=== PATIENT | female | born 1995 | race Caucasian/White ===

== ENCOUNTER 2016-08-20 19:20 | Emergency (ER) | payer OTHER ==
--- NOTE | 2016-08-20 22:27 | DIAGNOSTIC IMAGING REPORT ---
PROCEDURE: US COMPLETE PELVIC W/TRANSVAG INDICATION: Pain. History of endometriosis. TECHNIQUE: Transabdominal and endovaginal stokes scale and color Doppler sonographic images of the female pelvis were obtained. COMPARISON: None. FINDINGS: TRANSABDOMINAL SCANS: Uterus is of normal size (5.4 x 5.5 x 3.5 cm). There is a large 6.2 cm left adnexal isoechoic lesion. TRANSVAGINAL SCANS: Endometrial thickness is normal (5 mm). Left ovary is enlarged (6.2 x 6.2 x 4.6 cm) secondary to a mildly heterogeneous hypoechoic lesion with probable small amount of fluid. There is no evidence of vascularity in the left adnexal region. Right ovary is normal (2.4 cm) with normal vascularity. No evidence of free fluid. IMPRESSION: 1. There is enlargement left ovary (6.2 cm) consistent with a chronic endometrioma or hemorrhagic left ovarian cyst. Ovarian neoplasm or ovarian torsion are considered less likely. Early follow-up pelvic ultrasound (2-3 weeks) is recommended to confirm resolution. 2. Otherwise negative pelvic ultrasound. 3. Fine discussed with ÓSCAR Infante.
--- NOTE | 2016-08-20 22:37 | ED NURSING NOTES ---
Clinical Report - Nurses [facility] [address] [place] [address] 08/20/2016 19:23 Patient: LASHAWN TAVERA TRIAGE Triage time 1930. Acuity: LEVEL 3. Chief Complaint: ABDOMINAL PAIN and VAGINAL BLEEDING and URINARY URGENCY. --19:38 Nate Nino R.N. 19:28 08/20/16. BP: 135/84. HR: 82. RR: 16. O2 saturation: 100%. Temp: 98.6 F. Pain level now 05/08. --19:38 Nate Nino R.N. Weight: 51.2 kg stated. Height/Length: 66 inches Per Patient. BMI: 18.2. --19:34 Nate Nino R.N. Medications None. --20:47 Nate Nino R.N. Allergies Naproxen. --20:47 Nate Nino R.N. History Arrived by private vehicle. Historian: patient. Accompanied by friend. Onset. (1 weeks). ( LLQ pain x 1 week, started vag bleeding 2 days ago. pt on depo and not expecting menses.). She has had nausea. 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 SOCIAL HX: Heavy tobacco smoker- less than 1 pack per day. History of drug use: marijuana. No infectious disease exposure. FALL RISK ASSESSMENT: Fall risk assessment completed. No fall risk identified. NUTRITIONAL RISK ASSESSMENT: The nutritional risk assessment revealed no deficiencies. FUNCTIONAL ASSESSMENT: Functional assessment: no impairments noted. LEARNING NEEDS ASSESSMENT: The learning needs assessment revealed no barriers. SKIN INTEGRITY ASSESSMENT: Skin integrity risk assessment completed. No skin integrity risk identified. --19:38 Nate Nino R.N. PAST MEDICAL HX: ( recent dx bacterial vaginosis approx 1 week ago). --19:41 Nate Nino R.N. PROBLEMS: Endometriosis. Bacterial vaginosis. --20:48 Nate Nino R.N. ADDITIONAL SURGERIES: Laparoscopy. --20:48 Nate Nino R.N. Interventions ID band on patient. --19:38 Nate Nino R.N. PHYSICAL ASSESSMENT GENERAL / NEURO / PSYCH: Alert. Oriented X 4. Appears in no acute distress. HEENT: Mucous membranes are pink. RESPIRATORY: Respirations not labored. Breath sounds within normal limits. CVS: Normal sinus rhythm noted. Capillary refill less than 2 seconds. GI / : Abdomen soft. Bowel sounds within normal limits. Stool color normal. SKIN: Skin is warm and dry. --19:38 Nate Nino R.N. ( pt passing clots). --19:39 Nate Nino R.N. NURSING PROGRESS NOTES Patient gowned. Head of bed elevated. Reassurance given. Patient identifiers checked. Call light placed in reach. Bed placed in lowest position. Brakes of bed on. --19:38 Nate Nino R.N. 20:08/20/2016 Site #1 started via IV in the right antecubital space with an 20g angiocath, with aseptic technique and good blood return; one attempt. Blood drawn: rainbow set. Labeled in the presence of the patient and sent to the lab. Saline lock flushed with saline. --20:04 Nate Nino R.N. 20:04 08/20/2016 Started bag #1 1000 mL IV Fluids IV NS (Saline); bolus of 1000 mL wide open via site #1. Allergies verified and confirmed 5 rights. IV patency established. IV site checked: no pain, redness, or swelling. IV flushed thoroughly pre- and post-medication administration. --20:04 Nate Nino R.N. 20:12 08/20/2016 Zofran (Ondansetron HCl) IVP 4 mg given. via site #1. Allergies verified and confirmed 5 rights. IV patency established. IV site checked: no pain, redness, or swelling. IV flushed thoroughly pre- and post-medication administration. --20:12 Nate Nino R.N. 20:12 08/20/2016 Dilaudid (HYDROmorphone HCl PF) IVP 0.5 mg given. via site #1. Allergies verified and confirmed 5 rights. IV patency established. IV site checked: no pain, redness, or swelling. IV flushed thoroughly pre- and post-medication administration. --20:12 Nate Nino R.N. 21:54 08/20/2016 IV Fluids IV NS Discontinued: bag #1 infused. Total amount infused: 1000 mL. IV patency established. IV site checked: no pain, redness, or swelling. IV flushed thoroughly. --22:19 Nate Nino R.N. <<STRICKEN ENTRY-- 22:19 08/20/2016 Dilaudid (HYDROmorphone HCl PF) IVP 0.5 mg given. via site #1. Allergies verified and confirmed 5 rights. IV patency established. IV site checked: no pain, redness, or swelling. IV flushed thoroughly pre- and post-medication administration. --22:19 Nate Nino R.N. --END STRIKE>> Change to Details. second dose given on onetime dose order. charted second dose on second order as appropriate. --22:23 Nate Nino R.N. 22:20 08/20/2016 Dilaudid (HYDROmorphone HCl PF) IVP 0.5 mg given. via site #1. Allergies verified and confirmed 5 rights. IV patency established. IV site checked: no pain, redness, or swelling. IV flushed thoroughly pre- and post-medication administration. --22:20 Nate Nino R.N. 22:46 08/20/2016 Hydrocodone-APAP (Hydrocodone-Acetaminophen) PO 5/325 mg Tablets 1 tab given. Allergies verified, confirmed 5 rights and sedative warning given to the patient. (pt only wanted 1 tab, provider notified). --22:56 González Fried R.N. 22:53. The patient is calm and resting quietly. SKIN: Skin is warm and dry. Skin color within normal limits. --22:58 González Fried R.N. DISPOSITION / DISCHARGE Departure time: 22:56. Condition at departure: stable. No learning barriers present. Discharge instructions provided and reviewed with the patient. Reviewed medication(s) side effects, precautions, dosing and course information. Prescription(s) given to the patient. Patient verbalized understanding. Written instructions provided in Croatian. The patient was discharged home and accompanied by cardiac sonographer. She left the Emergency Department ambulatory and via private vehicle. Synthetic Staple Extruder driving. FALL RISK ASSESSMENT: Fall risk assessment completed. No fall risk identified. --22:58 González Fried R.N. 22:56 08/20/16. BP: 128/86. HR: 72. RR: 15. O2 saturation: 100% on room air. Pain level now: 08/08. --22:58 González Fried R.N. 22:52 08/20/2016 Site #1 removed upon discharge. Bandaid applied. --22:58 González Fried R.N. Locked/Released at 08/20/2016 22:59 by González Fried R.N.
--- NOTE | 2016-08-20 22:37 | ED ORDER SUMMARY ---
..... Patient: LASHAWN TAVERA OrderSheet [facility] VisitID: [id number] [address] [place] [address] 21y, F Registration Date/Time: 08/20/2016 ORDER SHEET Weight: 51.2 kg (stated) Allergies: Naproxen GENERAL ORDERS: UA-Culture if indicated Urgent (19:36 08/20/2016 JQuivey R.N. per protocol) (Ack 19:38 CHagerty ER Mail Processing Machine Operator) (19:50 JBullard R.N.) Urine Urgent (19:36 08/20/2016 JQuivey R.N. per protocol) (Ack 19:38 CHagerty ER Mail Processing Machine Operator) (19:50 JBullard R.N.) CBC w Diff Urgent (19:48 08/20/2016 EKoroleva P.A.-C) (Ack 19:51 CHagerty ER Mail Processing Machine Operator) (20:03 JBullard R.N.) CMP Urgent (19:48 08/20/2016 EKoroleva P.A.-C) (Ack 19:51 CHagerty ER Mail Processing Machine Operator) (20:03 JBullard R.N.) US Pelvic Complete w Transvag Urgent (20:01 08/20/2016 EKoroleva P.A.-C) (Ack 20:04 CHagerty ER Mail Processing Machine Operator) (22:06 Jennifer) Wet Prep (Cervix) (c) Urgent (20:59 08/20/2016 EKoroleva P.A.-C) (Ack 21:00 CHagerty ER Mail Processing Machine Operator) (21:00 CHagerty ER Mail Processing Machine Operator) GC/Chlamydia (Cervix) (c) Urgent (20:59 08/20/2016 EKoroleva P.A.-C) (Ack 21:00 CHagerty ER Mail Processing Machine Operator) (21:00 CHagerty ER Mail Processing Machine Operator) MEDICATION ORDERS: Hydrocodone-APAP PO 10/650 mg (NOW, HIGH ALERT MEDICATION) (22:37 08/20/2016 EKoroleva P.A.-C) (Ack 22:43 JQuivey R.N.) (22:56 JQuivey R.N.) IV FLUIDS: IV NS : initial bolus 1000 mL (1000 mL/hr), then 10 mL/hr for X1 (NOW); Flako (19:48 08/20/2016 EKoroleva P.A.-C) (20:04 Comfort R.N.) Dilaudid IV 0.5 mg (HIGH ALERT MEDICATION, NOW) (20:03 08/20/2016 EKoroleva P.A.-C) (20:12 Comfort R.N.) Zofran IV 4 mg (NOW) (20:03 08/20/2016 EKoroleva P.A.-C) (20:12 Comfort R.N.) Dilaudid IV 0.5 mg (HIGH ALERT MEDICATION, NOW) (22:19 08/20/2016 EKoroleva P.A.-C) (22:20 Comfort R.N.) ORDER SHEET NOTES: [Electronically signed by González Fried R.N. (22:59 08/20/2016)] [Electronically signed by Mattie Romero P.A.-C (23:37 08/20/2016)] [Electronically locked/signed by González Fried R.N. (22:59 08/20/2016)]
--- NOTE | 2016-08-20 22:37 | ED CLINICAL REPORT ---
Clinical Report - Physicians/Mid Levels [facility] [address] [place] [address] 08/20/2016 19:23 Patient: LASHAWN TAVERA Time Seen: 1937. Arrived- By private vehicle. Historian- patient. HISTORY OF PRESENT ILLNESS Chief Complaint: PELVIC PAIN and VAGINAL BLEEDING. This started 4 days and still present. The symptoms are described as moderate. The patient has had pelvic pain. No low back pain, flank pain, pain with urination, urinary frequency or urgency of urination. Last normal menstrual period- last days 2 days prior. Sexually active. (aginal bleeding left pelvic pain over the last 2 days, worsening. Patient reports no vaginal bleeding over the last 7 years, she has bee no condom use.). REVIEW OF SYSTEMS No vomiting, diarrhea or chest pain. All systems otherwise negative, except as recorded above. PAST HISTORY Problems: Endometriosis. Bacterial vaginosis. Additional Surgeries: Laparoscopy. Medications: None. Allergies: Naproxen. SOCIAL HISTORY Smoker- current status unknown. History of drug use: marijuana. ADDITIONAL NOTES The nursing notes have been reviewed. PHYSICAL EXAM Vital Signs: 08/20/2016 19:28 BP: 135/84. HR: 82. RR: 16. O2 saturation: 100%. Temp: 98.6 F. Appearance: Alert. HEENT: Normal external inspection. ENT: Pharynx normal. Neck: Neck supple. No lymphadenopathy. CVS: Heart sounds normal. Respiratory: No respiratory distress. Breath sounds normal. Abdomen: Soft. Moderate tenderness in the left lower quadrant. No rebound tenderness. : Speculum and bimanual exam performed. External inspection normal. Speculum exam normal. Vaginal bleeding. No vaginal discharge. Bimanual exam normal. Mild left adnexal tenderness. Not mild cervical motion tenderness. No adnexal tenderness. No adnexal mass/fullness. (chaperoned exam with Cielo NOVAK). Skin: Skin warm. Normal skin color. LABS, X-RAYS, AND EKG Pelvic Sonogram: IMPRESSION: 1. There is enlargement left ovary (6.2 cm) consistent with a chronic endometrioma or hemorrhagic left ovarian cyst. Ovarian neoplasm or ovarian torsion are considered less likely. Early follow-up pelvic ultrasound (2-3 weeks) is recommended to confirm resolution. 2. Otherwise negative pelvic ultrasound. 3. Fine discussed with ÓSCAR Infante. Electronically Final signed by:Dagoberto Anderson MD 08/20/2016 10:25:48 PM. Laboratory Tests: UA-Culture if indicated: ([place]: 08/20/2016 19:30) ( [facility] Final results Test Result Flag Units (Reference) URINE COLOR YELLOW URINE APPEARANCE CLEAR URINE GLUCOSE NEGATIVE (NEGATIVE) URINE BILIRUBIN NEGATIVE (NEGATIVE) URINE KETONE NEGATIVE (NEGATIVE) URINE SPECIFIC GRAVITY <= 1.005 L (1.010-1.030) URINE PH 6.5 (5.0-8.0) URINE PROTEIN NEGATIVE (NEGATIVE) URINE UROBILINOGEN 0.2 EU/dL (0.2-1.0) URINE NITRITE NEGATIVE (NEGATIVE) URINE BLOOD 3+ (NEGATIVE) URINE LEUK ESTERASE NEGATIVE (NEGATIVE) URINE RBC 3-5 rbc/hpf (0-1) URINE WBC NONE SEEN wbc/hpf (0-1) URINE EPITHELIAL CELLS 0-1 EPI/hpf (0-5) URINE BACTERIA NONE SEEN (NONE SEEN) URINE COMMENT CULT NOT INDICATED URINE CULTURES ARE SET-UP BASED ON THE FOLLOWING CRITERIA:POSITIVE NITRITEPOSITIVE LEUKOCYTE ESTERASEGREATER THAN 10 WHITE BLOOD CELLSMODERATE (2+) OR GREATER BACTERIA Urine: (STERLING: 08/20/2016 19:30) ( [facility] 19:48) Final results Test Result Flag Units (Reference) URINE NEGATIVE CBC w Diff: ([place]: 08/20/2016 20:00) ( [facility] 08/20/2016 20:21) Final results Test Result Flag Units (Reference) WHITE BLOOD COUNT 8.4 K/uL (4.5-11.5) RED BLOOD COUNT 4.51 M/uL (4.00-5.20) HEMOGLOBIN 13.7 gm/dL (12.0-16.0) HEMATOCRIT 42.0 % (36.0-46.0) MEAN CELL VOLUME 93 fL (80-100) MEAN CORPUSCULAR HGB 31 pg (26-34) MEAN CORPUSCULAR HGB CONC 33 g/dL (31-37) RED CELL DISTRIBUTION WIDTH 13.1 % (11.6-14.8) PLATELET COUNT 233 K/uL (150-400) NEUTROPHIL % 63.6 % (50-75) LYMPH % 27.2 % (25-40) MONO % 7.1 % (3-14) EOSINOPHIL % 1.7 % (0-4) BASOPHIL % 0.4 % (0-2) CMP: (STERLING: 08/20/2016 20:00) ( [facility] 08/20/2016 20:42) Final results Test Result Flag Units (Reference) GLUCOSE 94 mg/dL (70-110) BUN 13 mg/dL (7-18) CREATININE 0.7 mg/dL (0.6-1.3) Estimated GFR >60 mL/min Estimated GFR- >60 mL/min Note: Persistent reduction over 3 months in eGFR<60 mL/min/1.73 m2 defines CKD. Patients with eGFR values>=60 mL/min/1.73 m2 may also have CKD if evidence ofpersistent proteinuria. Additional information may be foundat www.kidney.org. SODIUM 143 mmol/L (136-145) POTASSIUM 3.8 mmol/L (3.5-5.1) CHLORIDE 107 mmol/L (98-107) CARBON DIOXIDE 27 mmol/L (21-32) CALCIUM 8.3 L mg/dL (8.5-10.1) TOTAL PROTEIN 7.2 g/dL (6.4-8.2) ALBUMIN 4.0 g/dL (3.3-5.0) BILIRUBIN, TOTAL 0.4 mg/dL (0.0-1.0) ALKALINE PHOSPHATASE 70 U/L (46-116) AST (SGOT) 27 U/L (15-37) ALT (SGPT) 45 U/L (12-78) . PROGRESS AND PROCEDURES Course of Care: Pt with moderate amount of pain, over last 4 days, pt with h/o endometriosis. Patient is very stable, no significant hemorrhage, stable h/h. Concern for us with endometrioma vs hemorrhagic cyst, lengthy discussion with patients so and patient. At this time ddx does include torsion, however gradual pain, pt does report that she had her left ovary near her uterus previously and prior difficulty visualizing such. Informed if acute pain to return to er, reports she will have close f/u with dr. chapman/ safia, and if any difficulty to call ER in next few days, to schedule f/u appointment if we are able to help. No signs of infectious etiology. 08/20/2016 22:57 BP: 128/86. HR: 72. RR: 15. O2 saturation: 100%. Pain level now: 08/08. Patient is stable. Physical exam findings are improved. Symptoms better. Patient/family counseled. Differential Diagnosis: I considered gastritis, urinary tract infection, cystitis, prostatitis, ureterolithiasis, urinary obstruction, ovarian cyst, ovarian torsion, , ectopic , pelvic inflammatory disease and pelvic abscess as a possible cause of abdominal pain in this patient. This is a partial list of diagnoses considered. Disposition: Discharged. CLINICAL IMPRESSION Single left ovarian cyst (Hemorrhagic cyst vs Endometrioma). INSTRUCTIONS Drink plenty of fluids. (as mentioned you have a large 6.2 cm endometrioma or hemorrhagic cyst on the left side, and this needs close follow up with street light mechanic. Call to schedule an appointment tomorrow with DR. Hood and or Hill If any difficulty call er back tomorrow after 1 pm, before 5 pm [phone] NO sexual activity). Warnings: Further evaluation is necessary. Prescription Medications: Hydrocodone/APAP 7.5mg / 325mg: take 1-2 orally every 6 hours as needed for pain. Dispense twenty-five (25). No refill. Follow-up with: Joe Hood MD, Obstetrics/Gynecology, , [facility], [address] [place] [address] Follow up. Call for the next available appointment. (Electronically signed by Mattie Romero P.A.-C 08/20/2016 23:37)
--- NOTE | 2016-08-20 22:37 | ED CLINICAL REPORT ---
Clinical Report - Physicians/Mid Levels [facility] [address] [place] [address] 08/20/2016 19:23 Patient: LASHAWN TAVERA Time Seen: 1937. Arrived- By private vehicle. Historian- patient. HISTORY OF PRESENT ILLNESS Chief Complaint: PELVIC PAIN and VAGINAL BLEEDING. This started 4 days and still present. The symptoms are described as moderate. The patient has had pelvic pain. No low back pain, flank pain, pain with urination, urinary frequency or urgency of urination. Last normal menstrual period- last days 2 days prior. Sexually active. (aginal bleeding left pelvic pain over the last 2 days, worsening. Patient reports no vaginal bleeding over the last 7 years, she has bee no condom use.). REVIEW OF SYSTEMS No vomiting, diarrhea or chest pain. All systems otherwise negative, except as recorded above. PAST HISTORY Problems: Endometriosis. Bacterial vaginosis. Additional Surgeries: Laparoscopy. Medications: None. Allergies: Naproxen. SOCIAL HISTORY Smoker- current status unknown. History of drug use: marijuana. ADDITIONAL NOTES The nursing notes have been reviewed. PHYSICAL EXAM Vital Signs: 08/20/2016 19:28 BP: 135/84. HR: 82. RR: 16. O2 saturation: 100%. Temp: 98.6 F. Appearance: Alert. HEENT: Normal external inspection. ENT: Pharynx normal. Neck: Neck supple. No lymphadenopathy. CVS: Heart sounds normal. Respiratory: No respiratory distress. Breath sounds normal. Abdomen: Soft. Moderate tenderness in the left lower quadrant. No rebound tenderness. : Speculum and bimanual exam performed. External inspection normal. Speculum exam normal. Vaginal bleeding. No vaginal discharge. Bimanual exam normal. Mild left adnexal tenderness. Not mild cervical motion tenderness. No adnexal tenderness. No adnexal mass/fullness. (chaperoned exam with Cielo NOVAK). Skin: Skin warm. Normal skin color. LABS, X-RAYS, AND EKG Pelvic Sonogram: IMPRESSION: 1. There is enlargement left ovary (6.2 cm) consistent with a chronic endometrioma or hemorrhagic left ovarian cyst. Ovarian neoplasm or ovarian torsion are considered less likely. Early follow-up pelvic ultrasound (2-3 weeks) is recommended to confirm resolution. 2. Otherwise negative pelvic ultrasound. 3. Fine discussed with ÓSCAR Infante. Electronically Final signed by:Dagoberto Anderson MD 08/20/2016 10:25:48 PM. Laboratory Tests: UA-Culture if indicated: ([place]ING: 08/20/2016 19:30) ( [facility] 08/20/2016 20:04) Final results Test Result Flag Units (Reference) URINE COLOR YELLOW URINE APPEARANCE CLEAR URINE GLUCOSE NEGATIVE (NEGATIVE) URINE BILIRUBIN NEGATIVE (NEGATIVE) URINE KETONE NEGATIVE (NEGATIVE) URINE SPECIFIC GRAVITY <= 1.005 L (1.010-1.030) URINE PH 6.5 (5.0-8.0) URINE PROTEIN NEGATIVE (NEGATIVE) URINE UROBILINOGEN 0.2 EU/dL (0.2-1.0) URINE NITRITE NEGATIVE (NEGATIVE) URINE BLOOD 3+ (NEGATIVE) URINE LEUK ESTERASE NEGATIVE (NEGATIVE) URINE RBC 3-5 rbc/hpf (0-1) URINE WBC NONE SEEN wbc/hpf (0-1) URINE EPITHELIAL CELLS 0-1 EPI/hpf (0-5) URINE BACTERIA NONE SEEN (NONE SEEN) URINE COMMENT CULT NOT INDICATED URINE CULTURES ARE SET-UP BASED ON THE FOLLOWING CRITERIA:POSITIVE NITRITEPOSITIVE LEUKOCYTE ESTERASEGREATER THAN 10 WHITE BLOOD CELLSMODERATE (2+) OR GREATER BACTERIA Urine: (STER[place]ING: 08/20/2016 19:30) ( [facility] 08/20/2016 19:48) Final results Test Result Flag Units (Reference) URINE NEGATIVE CBC w Diff: ([place]: 08/20/2016 20:00) ( [facility] 08/20/2016 20:21) Final results Test Result Flag Units (Reference) WHITE BLOOD COUNT 8.4 K/uL (4.5-11.5) RED BLOOD COUNT 4.51 M/uL (4.00-5.20) HEMOGLOBIN 13.7 gm/dL (12.0-16.0) HEMATOCRIT 42.0 % (36.0-46.0) MEAN CELL VOLUME 93 fL (80-100) MEAN CORPUSCULAR HGB 31 pg (26-34) MEAN CORPUSCULAR HGB CONC 33 g/dL (31-37) RED CELL DISTRIBUTION WIDTH 13.1 % (11.6-14.8) PLATELET COUNT 233 K/uL (150-400) NEUTROPHIL % 63.6 % (50-75) LYMPH % 27.2 % (25-40) MONO % 7.1 % (3-14) EOSINOPHIL % 1.7 % (0-4) BASOPHIL % 0.4 % (0-2) CMP: (STERLING: 08/20/2016 20:00) ( MsgRcvd 08/20/2016 20:42) Final results Test Result Flag Units (Reference) GLUCOSE 94 mg/dL (70-110) BUN 13 mg/dL (7-18) CREATININE 0.7 mg/dL (0.6-1.3) Estimated GFR >60 mL/min Estimated GFR- >60 mL/min Note: Persistent reduction over 3 months in eGFR<60 mL/min/1.73 m2 defines CKD. Patients with eGFR values>=60 mL/min/1.73 m2 may also have CKD if evidence ofpersistent proteinuria. Additional information may be foundat www.kidney.org. SODIUM 143 mmol/L (136-145) POTASSIUM 3.8 mmol/L (3.5-5.1) CHLORIDE 107 mmol/L (98-107) CARBON DIOXIDE 27 mmol/L (21-32) CALCIUM 8.3 L mg/dL (8.5-10.1) TOTAL PROTEIN 7.2 g/dL (6.4-8.2) ALBUMIN 4.0 g/dL (3.3-5.0) BILIRUBIN, TOTAL 0.4 mg/dL (0.0-1.0) ALKALINE PHOSPHATASE 70 U/L (46-116) AST (SGOT) 27 U/L (15-37) ALT (SGPT) 45 U/L (12-78) . PROGRESS AND PROCEDURES Course of Care: Pt with moderate amount of pain, over last 4 days, pt with h/o endometriosis. Patient is very stable, no significant hemorrhage, stable h/h. Concern for us with endometrioma vs hemorrhagic cyst, lengthy discussion with patients so and patient. At this time ddx does include torsion, however gradual pain, pt does report that she had her left ovary near her uterus previously and prior difficulty visualizing such. Informed if acute pain to return to er, reports she will have close f/u with dr. chapman/ safia, and if any difficulty to call ER in next few days, to schedule f/u appointment if we are able to help. No signs of infectious etiology. 08/20/2016 22:57 BP: 128/86. HR: 72. RR: 15. O2 saturation: 100%. Pain level now: 08/08. Patient is stable. Physical exam findings are improved. Symptoms better. Patient/family counseled. Differential Diagnosis: I considered gastritis, urinary tract infection, cystitis, prostatitis, ureterolithiasis, urinary obstruction, ovarian cyst, ovarian torsion, , ectopic , pelvic inflammatory disease and pelvic abscess as a possible cause of abdominal pain in this patient. This is a partial list of diagnoses considered. Disposition: Discharged. CLINICAL IMPRESSION Single left ovarian cyst (Hemorrhagic cyst vs Endometrioma). INSTRUCTIONS Drink plenty of fluids. (as mentioned you have a large 6.2 cm endometrioma or hemorrhagic cyst on the left side, and this needs close follow up with firer portable boiler. Call to schedule an appointment tomorrow with DR. Hood and or Hill If any difficulty call er back tomorrow after 1 pm, before 5 pm [phone] NO sexual activity). Warnings: Further evaluation is necessary. Prescription Medications: Hydrocodone/APAP 7.5mg / 325mg: take 1-2 orally every 6 hours as needed for pain. Dispense twenty-five (25). No refill. Follow-up with: Joe Hood MD, Obstetrics/Gynecology, , [facility], [address] [place] [address] Follow up. Call for the next available appointment. (Electronically signed by Mattie Romero P.A.-C 08/20/2016 23:37)
--- NOTE | 2016-08-20 22:37 | ED ORDER SUMMARY ---
..... Patient: LASHAWN TAVERA OrderSheet [facility] VisitID: [id number] [address] [place] [address] 21y, F Registration Date/Time: 08/20/2016 ORDER SHEET Weight: 51.2 kg (stated) Allergies: Naproxen GENERAL ORDERS: UA-Culture if indicated Urgent (19:36 08/20/2016 JQuivey R.N. per protocol) (Ack 19:38 CHagerty ER Forepart Reducer) (19:50 JBullard R.N.) Urine Urgent (19:36 08/20/2016 JQuivey R.N. per protocol) (Ack 19:38 CHagerty ER Forepart Reducer) (19:50 JBullard R.N.) CBC w Diff Urgent (19:48 08/20/2016 EKoroleva P.A.-C) (Ack 19:51 CHagerty ER Forepart Reducer) (20:03 JBullard R.N.) CMP Urgent (19:48 08/20/2016 EKoroleva P.A.-C) (Ack 19:51 CHagerty ER Forepart Reducer) (20:03 JBullard R.N.) US Pelvic Complete w Transvag Urgent (20:01 08/20/2016 EKoroleva P.A.-C) (Ack 20:04 CHagerty ER Forepart Reducer) (22:06 Jennifer) Wet Prep (Cervix) (c) Urgent (20:59 08/20/2016 EKoroleva P.A.-C) (Ack 21:00 CHagerty ER Forepart Reducer) (21:00 CHagerty ER Forepart Reducer) GC/Chlamydia (Cervix) (c) Urgent (20:59 08/20/2016 EKoroleva P.A.-C) (Ack 21:00 CHagerty ER Forepart Reducer) (21:00 CHagerty ER Forepart Reducer) MEDICATION ORDERS: Hydrocodone-APAP PO 10/650 mg (NOW, HIGH ALERT MEDICATION) (22:37 08/20/2016 EKoroleva P.A.-C) (Ack 22:43 JQuivey R.N.) (22:56 JQuivey R.N.) IV FLUIDS: IV NS : initial bolus 1000 mL (1000 mL/hr), then 10 mL/hr for X1 (NOW); Flako (19:48 08/20/2016 EKoroleva P.A.-C) (20:04 Comfort R.N.) Dilaudid IV 0.5 mg (HIGH ALERT MEDICATION, NOW) (20:03 08/20/2016 EKoroleva P.A.-C) (20:12 Comfort R.N.) Zofran IV 4 mg (NOW) (20:03 08/20/2016 EKoroleva P.A.-C) (20:12 Comfort R.N.) Dilaudid IV 0.5 mg (HIGH ALERT MEDICATION, NOW) (22:19 08/20/2016 EKoroleva P.A.-C) (22:20 Comfort R.N.) ORDER SHEET NOTES: [Electronically signed by González Fried R.N. (22:59 08/20/2016)] [Electronically signed by Mattie Romero P.A.-C (23:37 08/20/2016)] [Electronically locked/signed by González Fried R.N. (22:59 08/20/2016)]
--- NOTE | 2016-08-20 22:37 | ED NURSING NOTES ---
Clinical Report - Nurses [facility] [address] [place] [address] 08/20/2016 19:23 Patient: LASHAWN TAVERA TRIAGE Triage time 1930. Acuity: LEVEL 3. Chief Complaint: ABDOMINAL PAIN and VAGINAL BLEEDING and URINARY URGENCY. --19:38 Nate Nino R.N. 19:28 08/20/16. BP: 135/84. HR: 82. RR: 16. O2 saturation: 100%. Temp: 98.6 F. Pain level now 05/08. --19:38 Nate Nino R.N. Weight: 51.2 kg stated. Height/Length: 66 inches Per Patient. BMI: 18.2. --19:34 Nate Nino R.N. Medications None. --20:47 Nate iNno R.N. Allergies Naproxen. --20:47 Nate Nino R.N. History Arrived by private vehicle. Historian: patient. Accompanied by friend. Onset. (1 weeks). ( LLQ pain x 1 week, started vag bleeding 2 days ago. pt on depo and not expecting menses.). She has had nausea. 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 SOCIAL HX: Heavy tobacco smoker- less than 1 pack per day. History of drug use: marijuana. No infectious disease exposure. FALL RISK ASSESSMENT: Fall risk assessment completed. No fall risk identified. NUTRITIONAL RISK ASSESSMENT: The nutritional risk assessment revealed no deficiencies. FUNCTIONAL ASSESSMENT: Functional assessment: no impairments noted. LEARNING NEEDS ASSESSMENT: The learning needs assessment revealed no barriers. SKIN INTEGRITY ASSESSMENT: Skin integrity risk assessment completed. No skin integrity risk identified. --19:38 Nate Nino R.N. PAST MEDICAL HX: ( recent dx bacterial vaginosis approx 1 week ago). --19:41 Nate Nino R.N. PROBLEMS: Endometriosis. Bacterial vaginosis. --20:48 Nate Nino R.N. ADDITIONAL SURGERIES: Laparoscopy. --20:48 Nate Nino R.N. Interventions ID band on patient. --19:38 Nate Nino R.N. PHYSICAL ASSESSMENT GENERAL / NEURO / PSYCH: Alert. Oriented X 4. Appears in no acute distress. HEENT: Mucous membranes are pink. RESPIRATORY: Respirations not labored. Breath sounds within normal limits. CVS: Normal sinus rhythm noted. Capillary refill less than 2 seconds. GI / : Abdomen soft. Bowel sounds within normal limits. Stool color normal. SKIN: Skin is warm and dry. --19:38 Nate Nino R.N. ( pt passing clots). --19:39 Nate Nino R.N. NURSING PROGRESS NOTES Patient gowned. Head of bed elevated. Reassurance given. Patient identifiers checked. Call light placed in reach. Bed placed in lowest position. Brakes of bed on. --19:38 Ntae Nino R.N. 20:08/20/2016 Site #1 started via IV in the right antecubital space with an 20g angiocath, with aseptic technique and good blood return; one attempt. Blood drawn: rainbow set. Labeled in the presence of the patient and sent to the lab. Saline lock flushed with saline. --20:04 Nate Nino R.N. 20:04 08/20/2016 Started bag #1 1000 mL IV Fluids IV NS (Saline); bolus of 1000 mL wide open via site #1. Allergies verified and confirmed 5 rights. IV patency established. IV site checked: no pain, redness, or swelling. IV flushed thoroughly pre- and post-medication administration. --20:04 Nate Nino R.N. 20:12 08/20/2016 Zofran (Ondansetron HCl) IVP 4 mg given. via site #1. Allergies verified and confirmed 5 rights. IV patency established. IV site checked: no pain, redness, or swelling. IV flushed thoroughly pre- and post-medication administration. --20:12 Nate Nino R.N. 20:12 08/20/2016 Dilaudid (HYDROmorphone HCl PF) IVP 0.5 mg given. via site #1. Allergies verified and confirmed 5 rights. IV patency established. IV site checked: no pain, redness, or swelling. IV flushed thoroughly pre- and post-medication administration. --20:12 Nate Nino R.N. 21:54 08/20/2016 IV Fluids IV NS Discontinued: bag #1 infused. Total amount infused: 1000 mL. IV patency established. IV site checked: no pain, redness, or swelling. IV flushed thoroughly. --22:19 Nate Nino R.N. <<STRICKEN ENTRY-- 22:19 08/20/2016 Dilaudid (HYDROmorphone HCl PF) IVP 0.5 mg given. via site #1. Allergies verified and confirmed 5 rights. IV patency established. IV site checked: no pain, redness, or swelling. IV flushed thoroughly pre- and post-medication administration. --22:19 Nate Nino R.N. --END STRIKE>> Change to Details. second dose given on onetime dose order. charted second dose on second order as appropriate. --22:23 Nate Nino R.N. 22:20 08/20/2016 Dilaudid (HYDROmorphone HCl PF) IVP 0.5 mg given. via site #1. Allergies verified and confirmed 5 rights. IV patency established. IV site checked: no pain, redness, or swelling. IV flushed thoroughly pre- and post-medication administration. --22:20 Nate Nino R.N. 22:46 08/20/2016 Hydrocodone-APAP (Hydrocodone-Acetaminophen) PO 5/325 mg Tablets 1 tab given. Allergies verified, confirmed 5 rights and sedative warning given to the patient. (pt only wanted 1 tab, provider notified). --22:56 González Fried R.N. 22:53. The patient is calm and resting quietly. SKIN: Skin is warm and dry. Skin color within normal limits. --22:58 González Fried R.N. DISPOSITION / DISCHARGE Departure time: 22:56. Condition at departure: stable. No learning barriers present. Discharge instructions provided and reviewed with the patient. Reviewed medication(s) side effects, precautions, dosing and course information. Prescription(s) given to the patient. Patient verbalized understanding. Written instructions provided in Faroese. The patient was discharged home and accompanied by improvement nurse. She left the Emergency Department ambulatory and via private vehicle. Php Programmer driving. FALL RISK ASSESSMENT: Fall risk assessment completed. No fall risk identified. --22:58 González Fried R.N. 22:56 08/20/16. BP: 128/86. HR: 72. RR: 15. O2 saturation: 100% on room air. Pain level now: 08/08. --22:58 González Fried R.N. 22:52 08/20/2016 Site #1 removed upon discharge. Bandaid applied. --22:58 González Fried R.N. Locked/Released at 08/20/2016 22:59 by González Fried R.N.
--- NOTE | 2016-08-20 23:37 | ED DISCHARGE INSTRUCTIONS ---
Patient: LASHAWN TAVERA General Instructions [facility] VisitID: [id number] [address] [place] [id number] 21y, F Registration Date/Time: 08/20/2016 Single left ovarian cyst (Hemorrhagic cyst vs Endometrioma). INSTRUCTIONS Drink plenty of fluids. (as mentioned you have a large 6.2 cm endometrioma or hemorrhagic cyst on the left side, and this needs close follow up with supervisor parachute manufacturing. Call to schedule an appointment tomorrow with DR. Hood and or Hill If any difficulty call er back tomorrow after 1 pm, before 5 pm [phone] NO sexual activity). Warnings: Further evaluation is necessary. Prescription Medications: Hydrocodone/APAP 7.5mg / 325mg: take 1-2 orally every 6 hours as needed for pain. Dispense twenty-five (25). No refill. Follow-up with: Joe Hood MD, Obstetrics/Gynecology, , [facility], [address] [place] [address] Follow up. Call for the next available appointment. ADDITIONAL INFORMATION Ovarian Cyst The ovary is a small organ located on each side of the uterus. During each menstrual cycle a tiny egg sac forms in the ovary. If the egg is released but does not occur, this sac usually dissolves. Sometimes, the sac may fill with fluid. It then enlarges into a painful cyst. Usually the cyst will rupture or shrink on its own. In either case, the pain gradually goes away over the next 1-3 days. If the cyst does not shrink or rupture, it may cause continued pain. Home Care: Rest in bed and avoid heavy exertion until you are feeling better. Heat to the lower abdomen usually helps (heating pad or hot packs -- a small towel soaked in hot water). You may use acetaminophen (Tylenol) or ibuprofen (Motrin, Advil) to control pain, unless another pain medicine was prescribed. [NOTE: If you have chronic liver or kidney disease or ever had a stomach ulcer or GI bleeding, talk with your doctor before using these medicines.] Follow Up: See your doctor within the next 2-3 days if your pain doesnt improve. Otherwise, follow up with your doctor after your next period or as directed by our staff. Get Prompt Medical Attention if any of the following occur: Pain worsens or fails to respond to the above measures Fever of 100.4F (38C) or higher, or as directed by your healthcare provider Heavy vaginal bleeding (soaking one pad an hour for three hours) You feel weak or dizzy Fainting Passage of a pink or stokes tissue with menstrual bleeding Hydrocodone Bitartrate, Acetaminophen Oral tablet What is this medicine? ACETAMINOPHEN; HYDROCODONE (a set a AYANA shubham fen; tiffanie droe KOE done) is a pain reliever. It is used to treat mild to moderate pain. How should I use this medicine? Take this medicine by mouth. Swallow it with a full glass of water. Follow the directions on the prescription label. If the medicine upsets your stomach, take the medicine with food or milk. Do not take more than you are told to take. Talk to your powerhouse helper regarding the use of this medicine in children. This medicine is not approved for use in children. What side effects may I notice from receiving this medicine? Side effects that you should report to your doctor or health aged or disabled carer as soon as possible: allergic reactions like skin rash, itching or hives, swelling of the face, lips, or tongue breathing problems confusion feeling faint or lightheaded, falls stomach pain yellowing of the eyes or skin Side effects that usually do not require medical attention (report to your doctor or health aged or disabled carer if they continue or are bothersome): nausea, vomiting stomach upset What may interact with this medicine? alcohol antihistamines isoniazid medicines for depression, anxiety, or psychotic disturbances medicines for sleep muscle relaxants naltrexone narcotic medicines (opiates) for pain phenobarbital ritonavir tramadol What if I miss a dose? If you miss a dose, take it as soon as you can. If it is almost time for your next dose, take only that dose. Do not take double or extra doses. Where should I keep my medicine? Keep out of the reach of children. This medicine can be abused. Keep your medicine in a safe place to protect it from theft. Do not share this medicine with anyone. Selling or giving away this medicine is dangerous and against the law. Store at room temperature between 15 and 30 degrees C (59 and 86 degrees F). Protect from light. Keep container tightly closed. Throw away any unused medicine after the expiration date. Discard unused medicine and used packaging carefully. Pets and children can be harmed if they find used or lost packages. What should I tell my health care provider before I take this medicine? They need to know if you have any of these conditions: brain tumor Crohn's disease, inflammatory bowel disease, or ulcerative colitis drink more than 3 alcohol-containing drinks per day drug abuse or addiction head injury heart or circulation problems kidney disease or problems going to the bathroom liver disease lung disease, asthma, or breathing problems an unusual or allergic reaction to acetaminophen, hydrocodone, other opioid analgesics, other medicines, foods, dyes, or preservatives or trying to get breast-feeding What should I watch for while using this medicine? Tell your doctor or health aged or disabled carer if your pain does not go away, if it gets worse, or if you have new or a different type of pain. You may develop tolerance to the medicine. Tolerance means that you will need a higher dose of the medicine for pain relief. Tolerance is normal and is expected if you take the medicine for a long time. Do not suddenly stop taking your medicine because you may develop a severe reaction. Your body becomes used to the medicine. This does NOT mean you are addicted. Addiction is a behavior related to getting and using a drug for a non-medical reason. If you have pain, you have a medical reason to take pain medicine. Your doctor will tell you how much medicine to take. If your doctor wants you to stop the medicine, the dose will be slowly lowered over time to avoid any side effects. You may get drowsy or dizzy when you first start taking the medicine or change doses. Do not drive, use machinery, or do anything that may be dangerous until you know how the medicine affects you. Stand or sit up slowly. There are different types of narcotic medicines (opiates) for pain. If you take more than one type at the same time, you may have more side effects. Give your health care provider a list of all medicines you use. Your doctor will tell you how much medicine to take. Do not take more medicine than directed. Call emergency for help if you have problems breathing. The medicine will cause constipation. Try to have a bowel movement at least every 2 to 3 days. If you do not have a bowel movement for 3 days, call your doctor or health aged or disabled carer. Too much acetaminophen can be very dangerous. Do not take Tylenol (acetaminophen) or medicines that contain acetaminophen with this medicine. Many non-prescription medicines contain acetaminophen. Always read the labels carefully. You have been given the following additional information: Ovarian Cyst Hydrocodone Bitartrate, Acetaminophen Oral tablet (Electronically signed by Mattie Romero P.A.-C 08/20/2016 23:37)
--- NOTE | 2016-08-20 23:37 | ED DISCHARGE INSTRUCTIONS ---
Patient: LASHAWN TAVERA General Instructions [facility] VisitID: [id number] [place] [phone] 21y, F Registration Date/Time: 08/20/2016 Single left ovarian cyst (Hemorrhagic cyst vs Endometrioma). INSTRUCTIONS Drink plenty of fluids. (as mentioned you have a large 6.2 cm endometrioma or hemorrhagic cyst on the left side, and this needs close follow up with online marketing director. Call to schedule an appointment tomorrow with DR. Hood and or Hill If any difficulty call er back tomorrow after 1 pm, before 5 pm [phone] NO sexual activity). Warnings: Further evaluation is necessary. Prescription Medications: Hydrocodone/APAP 7.5mg / 325mg: take 1-2 orally every 6 hours as needed for pain. Dispense twenty-five (25). No refill. Follow-up with: Joe Hood MD, Obstetrics/Gynecology, , [facility], [address] [place] [address] Follow up. Call for the next available appointment. ADDITIONAL INFORMATION Ovarian Cyst The ovary is a small organ located on each side of the uterus. During each menstrual cycle a tiny egg sac forms in the ovary. If the egg is released but does not occur, this sac usually dissolves. Sometimes, the sac may fill with fluid. It then enlarges into a painful cyst. Usually the cyst will rupture or shrink on its own. In either case, the pain gradually goes away over the next 1-3 days. If the cyst does not shrink or rupture, it may cause continued pain. Home Care: Rest in bed and avoid heavy exertion until you are feeling better. Heat to the lower abdomen usually helps (heating pad or hot packs -- a small towel soaked in hot water). You may use acetaminophen (Tylenol) or ibuprofen (Motrin, Advil) to control pain, unless another pain medicine was prescribed. [NOTE: If you have chronic liver or kidney disease or ever had a stomach ulcer or GI bleeding, talk with your doctor before using these medicines.] Follow Up: See your doctor within the next 2-3 days if your pain doesnt improve. Otherwise, follow up with your doctor after your next period or as directed by our staff. Get Prompt Medical Attention if any of the following occur: Pain worsens or fails to respond to the above measures Fever of 100.4F (38C) or higher, or as directed by your healthcare provider Heavy vaginal bleeding (soaking one pad an hour for three hours) You feel weak or dizzy Fainting Passage of a pink or stokes tissue with menstrual bleeding Hydrocodone Bitartrate, Acetaminophen Oral tablet What is this medicine? ACETAMINOPHEN; HYDROCODONE (a set a AYANA shubham fen; tiffanie droe KOE done) is a pain reliever. It is used to treat mild to moderate pain. How should I use this medicine? Take this medicine by mouth. Swallow it with a full glass of water. Follow the directions on the prescription label. If the medicine upsets your stomach, take the medicine with food or milk. Do not take more than you are told to take. Talk to your stencil machine operator regarding the use of this medicine in children. This medicine is not approved for use in children. What side effects may I notice from receiving this medicine? Side effects that you should report to your doctor or health healthcare recruiter as soon as possible: allergic reactions like skin rash, itching or hives, swelling of the face, lips, or tongue breathing problems confusion feeling faint or lightheaded, falls stomach pain yellowing of the eyes or skin Side effects that usually do not require medical attention (report to your doctor or health healthcare recruiter if they continue or are bothersome): nausea, vomiting stomach upset What may interact with this medicine? alcohol antihistamines isoniazid medicines for depression, anxiety, or psychotic disturbances medicines for sleep muscle relaxants naltrexone narcotic medicines (opiates) for pain phenobarbital ritonavir tramadol What if I miss a dose? If you miss a dose, take it as soon as you can. If it is almost time for your next dose, take only that dose. Do not take double or extra doses. Where should I keep my medicine? Keep out of the reach of children. This medicine can be abused. Keep your medicine in a safe place to protect it from theft. Do not share this medicine with anyone. Selling or giving away this medicine is dangerous and against the law. Store at room temperature between 15 and 30 degrees C (59 and 86 degrees F). Protect from light. Keep container tightly closed. Throw away any unused medicine after the expiration date. Discard unused medicine and used packaging carefully. Pets and children can be harmed if they find used or lost packages. What should I tell my health care provider before I take this medicine? They need to know if you have any of these conditions: brain tumor Crohn's disease, inflammatory bowel disease, or ulcerative colitis drink more than 3 alcohol-containing drinks per day drug abuse or addiction head injury heart or circulation problems kidney disease or problems going to the bathroom liver disease lung disease, asthma, or breathing problems an unusual or allergic reaction to acetaminophen, hydrocodone, other opioid analgesics, other medicines, foods, dyes, or preservatives or trying to get breast-feeding What should I watch for while using this medicine? Tell your doctor or health healthcare recruiter if your pain does not go away, if it gets worse, or if you have new or a different type of pain. You may develop tolerance to the medicine. Tolerance means that you will need a higher dose of the medicine for pain relief. Tolerance is normal and is expected if you take the medicine for a long time. Do not suddenly stop taking your medicine because you may develop a severe reaction. Your body becomes used to the medicine. This does NOT mean you are addicted. Addiction is a behavior related to getting and using a drug for a non-medical reason. If you have pain, you have a medical reason to take pain medicine. Your doctor will tell you how much medicine to take. If your doctor wants you to stop the medicine, the dose will be slowly lowered over time to avoid any side effects. You may get drowsy or dizzy when you first start taking the medicine or change doses. Do not drive, use machinery, or do anything that may be dangerous until you know how the medicine affects you. Stand or sit up slowly. There are different types of narcotic medicines (opiates) for pain. If you take more than one type at the same time, you may have more side effects. Give your health care provider a list of all medicines you use. Your doctor will tell you how much medicine to take. Do not take more medicine than directed. Call emergency for help if you have problems breathing. The medicine will cause constipation. Try to have a bowel movement at least every 2 to 3 days. If you do not have a bowel movement for 3 days, call your doctor or health healthcare recruiter. Too much acetaminophen can be very dangerous. Do not take Tylenol (acetaminophen) or medicines that contain acetaminophen with this medicine. Many non-prescription medicines contain acetaminophen. Always read the labels carefully. You have been given the following additional information: Ovarian Cyst Hydrocodone Bitartrate, Acetaminophen Oral tablet (Electronically signed by Mattie Romero P.A.-C 08/20/2016 23:37)
--- NOTE | 2016-08-20 23:37 | ED MAR SUMMARY ---
..... Medication Administration Record [facility] [address] [place] [place] [address] Patient: LASHAWN TAVERA Visit ID: [id number] 21y, F Weight: 51.2 kg Height/Length: 66 in BMI: 18.2 ALLERGIES: Naproxen Start 20:04 08/20/2016 Nate Nino R.N., Stop 21:54 08/20/2016 Nate Nino R.N. Medication Administered: IV NS (SALINE), Dose: IV Fluids, Bolus: 1000 mL wide open, Dispensed: 1000 mL bag, Site: #1 right AC. Medication Ordered: IV NS : initial bolus 1000 mL (1000 mL/hr), then 10 mL/hr for X1 (NOW); Flako. Given 20:12 08/20/2016 Nate Nino R.N. Medication Administered: DILAUDID [IVP] (HYDROMORPHONE HCL PF), Dose: 0.5 mg IVP, Site: #1 right AC. Medication Ordered: Dilaudid IV 0.5 mg (HIGH ALERT MEDICATION, NOW). Given 20:12 08/20/2016 Nate Nino R.N. Medication Administered: ZOFRAN [IVP] (ONDANSETRON HCL), Dose: 4 mg IVP, Site: #1 right AC. Medication Ordered: Zofran IV 4 mg (NOW). Given 22:20 08/20/2016 Nate Nino R.N. Medication Administered: DILAUDID [IVP] (HYDROMORPHONE HCL PF), Dose: 0.5 mg IVP, Site: #1 right AC. Medication Ordered: Dilaudid IV 0.5 mg (HIGH ALERT MEDICATION, NOW). Given 22:46 08/20/2016 González Fried R.N. Medication Administered: HYDROCODONE-APAP [PO] (HYDROCODONE-ACETAMINOPHEN), Dose: 1 tab 5/325 mg Tablets PO. Medication Ordered: Hydrocodone-APAP PO 10/650 mg (NOW, HIGH ALERT MEDICATION).
--- NOTE | 2016-08-20 23:37 | ED MAR SUMMARY ---
..... Medication Administration Record [facility] [address] [place] [address] Patient: LASHAWN TAVERA Visit ID: [id number] 21y, F Weight: 51.2 kg Height/Length: 66 in BMI: 18.2 ALLERGIES: Naproxen Start 20:04 08/20/2016 Nate Nino R.N., Stop 21:54 08/20/2016 Nate Nino R.N. Medication Administered: IV NS (SALINE), Dose: IV Fluids, Bolus: 1000 mL wide open, Dispensed: 1000 mL bag, Site: #1 right AC. Medication Ordered: IV NS : initial bolus 1000 mL (1000 mL/hr), then 10 mL/hr for X1 (NOW); Flako. Given 20:12 08/20/2016 Nate Nino R.N. Medication Administered: DILAUDID [IVP] (HYDROMORPHONE HCL PF), Dose: 0.5 mg IVP, Site: #1 right AC. Medication Ordered: Dilaudid IV 0.5 mg (HIGH ALERT MEDICATION, NOW). Given 20:12 08/20/2016 Nate Nino R.N. Medication Administered: ZOFRAN [IVP] (ONDANSETRON HCL), Dose: 4 mg IVP, Site: #1 right AC. Medication Ordered: Zofran IV 4 mg (NOW). Given 22:20 08/20/2016 Nate Nino R.N. Medication Administered: DILAUDID [IVP] (HYDROMORPHONE HCL PF), Dose: 0.5 mg IVP, Site: #1 right AC. Medication Ordered: Dilaudid IV 0.5 mg (HIGH ALERT MEDICATION, NOW). Given 22:46 08/20/2016 González Fried R.N. Medication Administered: HYDROCODONE-APAP [PO] (HYDROCODONE-ACETAMINOPHEN), Dose: 1 tab 5/325 mg Tablets PO. Medication Ordered: Hydrocodone-APAP PO 10/650 mg (NOW, HIGH ALERT MEDICATION).
--- NOTE | 2016-08-20 23:37 | ED MED RECONCILIATION SUMMARY ---
Patient: LASHAWN TAVERA Medication Reconciliation Report [facility] VisitID: [id number] [address] [place] [address] 21y, F Registration Date/Time: 08/20/2016 Weight: 51.2 kg Height/Length: 66 in. BMI: 18.2 ALLERGIES: Naproxen The patient's Home Medications are listed below: NONE. The source(s) of the original Home Medication information: Not obtained. The following Medications were given to the patient in the Emergency Department: IV NS IV Fluids bolus 1000 mL wide open, administered: 08/20/2016 8:04:00 PM Zofran [IVP] IVP 4 mg, administered: 08/20/2016 8:12:00 PM Dilaudid [IVP] IVP 0.5 mg, administered: 08/20/2016 8:12:00 PM Dilaudid [IVP] IVP 0.5 mg, administered: 08/20/2016 10:20:00 PM Hydrocodone-APAP [PO] PO 1 tab, administered: 08/20/2016 10:46:00 PM The following Medications were prescribed to the patient: Hydrocodone/APAP 7.5mg / 325mg: take 1-2 orally every 6 hours as needed for pain. Dispense twenty-five (25). No refill. -- Mattie Romero P.A.-C
--- NOTE | 2016-08-20 23:37 | ED MED RECONCILIATION SUMMARY ---
Patient: LASHAWN TAVERA Medication Reconciliation Report [facility] VisitID: [id number] [address] [place] [address] 21y, F Registration Date/Time: 08/20/2016 Weight: 51.2 kg Height/Length: 66 in. BMI: 18.2 ALLERGIES: Naproxen The patient's Home Medications are listed below: NONE. The source(s) of the original Home Medication information: Not obtained. The following Medications were given to the patient in the Emergency Department: IV NS IV Fluids bolus 1000 mL wide open, administered: 08/20/2016 8:04:00 PM Zofran [IVP] IVP 4 mg, administered: 08/20/2016 8:12:00 PM Dilaudid [IVP] IVP 0.5 mg, administered: 08/20/2016 8:12:00 PM Dilaudid [IVP] IVP 0.5 mg, administered: 08/20/2016 10:20:00 PM Hydrocodone-APAP [PO] PO 1 tab, administered: 08/20/2016 10:46:00 PM The following Medications were prescribed to the patient: Hydrocodone/APAP 7.5mg / 325mg: take 1-2 orally every 6 hours as needed for pain. Dispense twenty-five (25). No refill. -- Mattie Romero P.A.-C
== END 2016-08-20 22:56 | disposition home or self-care (01) ==
LOC: ED SRH 19:20
DX: N83.202 Unspecified ovarian cyst, left side (principal); Z88.5 Allergy status to narcotic agent
CPT/HCPCS: 90004; 90100; 90195; 91227; 91228; 93070; 95059

== ENCOUNTER 2016-09-12 18:43 | Emergency (ER) | payer OTHER ==
--- NOTE | 2016-09-12 20:38 | DIAGNOSTIC IMAGING REPORT ---
PROCEDURE: CT ABD/PELVIS WITH CONTRAST CLINICAL INDICATION: Right lower quadrant pain x 2 days, initial encounter TECHNIQUE: 95 ml of Isovue 300 were injected intravenously and axial images were obtained of the entire abdomen and pelvis with sagittal and coronal reformations. COMPARISON: None. FINDINGS: ABDOMEN: Lung base are clear. Heart size is normal. Liver, gallbladder, pancreas, spleen, adrenal glands, kidneys and abdominal aorta are normal. Nonspecific bowel gas pattern. PELVIS: Normal appendix. 4 cm left ovarian cyst with trace free fluid. Small right ovarian cyst. Normal uterus and bladder. No inflammatory changes. Bones are unremarkable. IMPRESSION: 1. 4 cm left ovarian cysts with trace free fluid 2. Results discussed with Tasneem Trivedi All CT scans at this facility use dose modulation, iterative reconstruction, and/or weight-based dosing when appropriate to reduce radiation dose to as low as reasonably achievable.
--- NOTE | 2016-09-12 20:48 | ED NURSING NOTES ---
Clinical Report - Nurses [facility] [place] [address] [address] 09/12/2016 18:44 Patient: LASHAWN TAVERA TRIAGE Triage time 18:48. Acuity: LEVEL 3. Chief Complaint: ABDOMINAL PAIN. Alert. No acute distress. SEPSIS SCREEN: Sepsis Screen. Negative (no infection suspected/documented). --18:52 Theresa Weber R.N. 18:48 09/12/16. BP: 120/72. HR: 96. RR: 15. O2 saturation: 100%. Temp: 99.0 F. Pain level now 05/08. --18:52 Theresa Weber R.N. ( Pt. states she has had a ruptured ovarian cyst in the past and she feels she may be having this today.). --18:55 Theresa Weber R.N. Weight: 51.2 kg stated. Height/Length: 66 inches Per Patient. BMI: 18.2. --18:49 Theresa Weber R.N. Medications Depo-Medrol Injection. --18:51 Theresa Weber R.N. Allergies Naproxen. (faint) --18:51 Theresa Weber R.N. History Arrived by private vehicle. Historian: patient. Accompanied by (boyfriend). Primary physician (none). This started today. Treatment COST AND SALES RECORD SUPERVISOR: None. PAST MEDICAL HX: Immunizations: up-to-date. Last normal menstrual period- 3 weeks ago. SOCIAL HX: Heavy tobacco smoker (cigarette)- less than 1 pack per day. Occasional alcohol use. History of drug use: marijuana. (daily). No recent travel. No known contact with a sick individual. ABUSE ASSESSMENT: Abuse assessment: The patient was asked "Do you feel safe in your home?" and "Has anyone hurt you or threatened to hurt you?". No report of abuse. SELF HARM ASSESSMENT: A self harm assessment was performed. The patient answered "no" to the question "Do you have thoughts of harming or killing yourself?" and "Have you recently had thoughts about harming or killing others?". NUTRITIONAL RISK ASSESSMENT: The nutritional risk assessment revealed no deficiencies. FUNCTIONAL ASSESSMENT: Functional assessment: no impairments noted. LEARNING NEEDS ASSESSMENT: The learning needs assessment revealed no barriers. --18:52 Theresa Weber R.N. PROBLEMS: Ovarian Cyst. Endometriosis. Bacterial vaginosis. --18:51 Theresa Weber R.N. ADDITIONAL SURGERIES: Laparoscopy. --18:51 Theresa Weber R.N. Interventions ID band on patient. Ambulatory. --18:52 Theresa Weber R.N. PHYSICAL ASSESSMENT Ambulatory to room. GENERAL / NEURO / PSYCH: Alert. Oriented X 4. She appears uncomfortable. HEENT: Mucous membranes are pink. RESPIRATORY: Respirations not labored. CVS: Capillary refill less than 2 seconds. GI / : Abdomen soft and nontender. SKIN: Skin is warm and dry. --18:55 Theresa Weber R.N. NURSING PROGRESS NOTES Patient gowned. Head of bed elevated. Two patient identifiers checked. Call light placed in reach. Side rails up x 2. Bed placed in lowest position. Brakes of bed on. Patient ready for evaluation- chart flagged. --18:52 Theresa Weber R.N. 18:53 09/12/2016 Site #1 started via IV in the right antecubital space with an 20g angiocath, with aseptic technique and good blood return; one attempt. Blood drawn: rainbow set. Labeled in the presence of the patient and sent to the lab. Saline lock flushed with 10 mL saline (accessed by KISHORE Torres). --18:53 Theresa Weber R.N. Care transferred and report given (to KISHORE Ma). --18:59 Theresa Weber R.N. 19:42 09/12/16. Patient ID band checked for patient name and birthdate: patient confirmed. Instructions provided to collect clean catch urine and patient verbalized understanding. Clean catch urine collected with return of yellow-colored clear urine; sample sent to lab. Specimen labeled in the presence of the patient. --19:42 Nasrin Caicedo. DISPOSITION / DISCHARGE 20:49 02/14/17. BP: 92/55 taken on the left arm, via an automated monitor, while lying. HR: 64. RR: 16. O2 saturation: 100%. Temp: 98.8 F (oral). Pain level now: 03/08. --20:50 Anil Jett R.N. 21:10 09/12/16. BP: 112/74 (regular adult cuff) taken on the left arm, via an automated monitor, while sitting. HR: 81. RR: 15. O2 saturation: 100% on room air. Temp: 98.2 F (oral). Pain level now: 03/08. --21:19 Vanessa Gordillo R.N. Departure time: 2118 PM. Condition at departure: stable. The goals identified in the patient's plan of care were met. No learning barriers present. Discharge instructions provided and reviewed with the patient. Reviewed medication(s) side effects, precautions, dosing and course information. Prescription(s) given to the patient (tramadol). Reviewed referral to an business objects report developer for followup. Reviewed low fat diet, bland diet and need for increased fluid intake. Activity restrictions (rest) reviewed. Patient verbalized understanding. Written instructions provided in Setswana. The patient was discharged by the nurse practitioner. She was discharged home and accompanied by senior editor. She left the Emergency Department ambulatory and via private vehicle. Onsite Health Coach driving. FALL RISK ASSESSMENT: Fall risk assessment completed. No fall risk identified. --21:19 Vanessa Gordillo R.N. 21:09 09/12/2016 Site #1 removed upon discharge. Catheter intact. Manual pressure applied. --21:20 Vanessa Gordillo R.N. Locked/Released at 09/12/2016 21:20 by Vanessa Gordillo R.N.
--- NOTE | 2016-09-12 20:48 | ED ORDER SUMMARY ---
..... Patient: LASHAWN TAVERA OrderSheet [facility] VisitID: [id number] [address] [place] [address] 21y, F Registration Date/Time: 09/12/2016 ORDER SHEET Weight: 51.2 kg (stated) Allergies: Naproxen GENERAL ORDERS: CBC w Diff Urgent (19:00 09/12/2016 HBivens A.R.N.P.) (Ack 19:04 AMcQuoid ER Tech1) (19:04 AMcQuoid ER Tech1) CMP Urgent (19:00 09/12/2016 HBivens A.R.N.P.) (Ack 19:04 AMcQuoid ER Tech1) (19:04 AMcQuoid ER Tech1) UA-Culture if indicated Urgent (19:00 09/12/2016 HBivens A.R.N.P.) (Ack 19:04 AMcQuoid ER Tech1) (19:06 HOShaughnessy R.N.) Amylase Urgent (19:00 09/12/2016 HBivens A.R.N.P.) (Ack 19:04 AMcQuoid ER Tech1) (19:04 AMcQuoid ER Tech1) Lipase Urgent (19:00 09/12/2016 HBivens A.R.N.P.) (Ack 19:04 AMcQuoid ER Tech1) (19:04 AMcQuoid ER Tech1) Urine Urgent (19:00 09/12/2016 HBivens A.R.N.P.) (Ack 19:04 AMcQuoid ER Tech1) (19:06 HOShaughnessy R.N.) CT Abd/Pel w Cont (No) (normal) Urgent (19:37 09/12/2016 HBivens A.R.N.P.) (Ack 19:40 AMcQuoid ER Tech1) (20:31 MCampbell) MEDICATION ORDERS: IV FLUIDS: IV Saline Lock (19:00 09/12/2016 HBivens A.R.N.P.) (19:05 HOShaughnessy R.N.) ORDER SHEET NOTES: [Electronically signed by Vanessa Gordillo R.N. (21:20 09/12/2016)] [Electronically signed by Tasneem Trivedi (22:09/12/2016)] [Electronically locked/signed by Vanessa Gordillo R.N. (:09/12/2016)]
--- NOTE | 2016-09-12 20:48 | ED NURSING NOTES ---
Clinical Report - Nurses [facility] [place] [address] [place] [address] 09/12/2016 18:44 Patient: LASHAWN TAVERA TRIAGE Triage time 18:48. Acuity: LEVEL 3. Chief Complaint: ABDOMINAL PAIN. Alert. No acute distress. SEPSIS SCREEN: Sepsis Screen. Negative (no infection suspected/documented). --18:52 Theresa Weber R.N. 18:48 09/12/16. BP: 120/72. HR: 96. RR: 15. O2 saturation: 100%. Temp: 99.0 F. Pain level now 05/08. --18:52 Theresa Weber R.N. ( Pt. states she has had a ruptured ovarian cyst in the past and she feels she may be having this today.). --18:55 Theresa Weber R.N. Weight: 51.2 kg stated. Height/Length: 66 inches Per Patient. BMI: 18.2. --18:49 Theresa Weber R.N. Medications Depo-Medrol Injection. --18:51 Theresa Weber R.N. Allergies Naproxen. (faint) --18:51 Theresa Weber R.N. History Arrived by private vehicle. Historian: patient. Accompanied by (boyfriend). Primary physician (none). This started today. Treatment BUSINESS TRANSFORMATION ANALYST: None. PAST MEDICAL HX: Immunizations: up-to-date. Last normal menstrual period- 3 weeks ago. SOCIAL HX: Heavy tobacco smoker (cigarette)- less than 1 pack per day. Occasional alcohol use. History of drug use: marijuana. (daily). No recent travel. No known contact with a sick individual. ABUSE ASSESSMENT: Abuse assessment: The patient was asked "Do you feel safe in your home?" and "Has anyone hurt you or threatened to hurt you?". No report of abuse. SELF HARM ASSESSMENT: A self harm assessment was performed. The patient answered "no" to the question "Do you have thoughts of harming or killing yourself?" and "Have you recently had thoughts about harming or killing others?". NUTRITIONAL RISK ASSESSMENT: The nutritional risk assessment revealed no deficiencies. FUNCTIONAL ASSESSMENT: Functional assessment: no impairments noted. LEARNING NEEDS ASSESSMENT: The learning needs assessment revealed no barriers. --18:52 Theresa Weber R.N. PROBLEMS: Ovarian Cyst. Endometriosis. Bacterial vaginosis. --18:51 Theresa Weber R.N. ADDITIONAL SURGERIES: Laparoscopy. --18:51 Theresa Weber R.N. Interventions ID band on patient. Ambulatory. --18:52 Theresa Weber R.N. PHYSICAL ASSESSMENT Ambulatory to room. GENERAL / NEURO / PSYCH: Alert. Oriented X 4. She appears uncomfortable. HEENT: Mucous membranes are pink. RESPIRATORY: Respirations not labored. CVS: Capillary refill less than 2 seconds. GI / : Abdomen soft and nontender. SKIN: Skin is warm and dry. --18:55 Theresa Weber R.N. NURSING PROGRESS NOTES Patient gowned. Head of bed elevated. Two patient identifiers checked. Call light placed in reach. Side rails up x 2. Bed placed in lowest position. Brakes of bed on. Patient ready for evaluation- chart flagged. --18:52 Theresa Weber R.N. 18:53 09/12/2016 Site #1 started via IV in the right antecubital space with an 20g angiocath, with aseptic technique and good blood return; one attempt. Blood drawn: rainbow set. Labeled in the presence of the patient and sent to the lab. Saline lock flushed with 10 mL saline (accessed by KISHORE Torres). --18:53 Theresa Weber R.N. Care transferred and report given (to KISHORE Ma). --18:59 Theresa Weber R.N. 19:42 09/12/16. Patient ID band checked for patient name and birthdate: patient confirmed. Instructions provided to collect clean catch urine and patient verbalized understanding. Clean catch urine collected with return of yellow-colored clear urine; sample sent to lab. Specimen labeled in the presence of the patient. --19:42 Nasrin Caicedo. DISPOSITION / DISCHARGE 20:49 02/14/17. BP: 92/55 taken on the left arm, via an automated monitor, while lying. HR: 64. RR: 16. O2 saturation: 100%. Temp: 98.8 F (oral). Pain level now: 03/08. --20:50 Anil Jett R.N. 21:10 09/12/16. BP: 112/74 (regular adult cuff) taken on the left arm, via an automated monitor, while sitting. HR: 81. RR: 15. O2 saturation: 100% on room air. Temp: 98.2 F (oral). Pain level now: 03/08. --21:19 Vanessa Gordillo R.N. Departure time: 2118 PM. Condition at departure: stable. The goals identified in the patient's plan of care were met. No learning barriers present. Discharge instructions provided and reviewed with the patient. Reviewed medication(s) side effects, precautions, dosing and course information. Prescription(s) given to the patient (tramadol). Reviewed referral to an fisher crab for followup. Reviewed low fat diet, bland diet and need for increased fluid intake. Activity restrictions (rest) reviewed. Patient verbalized understanding. Written instructions provided in Khmer. The patient was discharged by the nurse practitioner. She was discharged home and accompanied by head of measurement & insights. She left the Emergency Department ambulatory and via private vehicle. [employer] driving. FALL RISK ASSESSMENT: Fall risk assessment completed. No fall risk identified. --21:19 Vanessa Gordillo R.N. 21:09 09/12/2016 Site #1 removed upon discharge. Catheter intact. Manual pressure applied. --21:20 Vanessa Gordillo R.N. Locked/Released at 09/12/2016 21:20 by Vanessa Gordillo R.N.
--- NOTE | 2016-09-12 20:48 | ED CLINICAL REPORT ---
Clinical Report - Physicians/Mid Levels [facility] [address] [place] [address] 09/12/2016 18:44 Patient: LASHAWN TAVERA Time Seen: 18:49; upon arrival, initial patient contact, initial documentation, patient care assumed. Arrived- By private vehicle. Historian- patient. RETURN VISIT: recently seen in this ED by another ED physician. Seen now for a new unrelated complaint. HISTORY OF PRESENT ILLNESS Chief Complaint: ABDOMINAL PAIN. It is described as "pain" and it is described as located in the right lower quadrant. Is still present. It was gradual in onset and has been constant. No nausea, loss of appetite, vomiting or diarrhea. No recent travel. Similar symptoms previously: ( pain last time was on L not R). Recent medical care: The patient was seen recently at this facility in the emergency department. ( txed here 08/20, dx with ovarian cyst, rx hydrocodone, no f/u). REVIEW OF SYSTEMS Last normal menstrual period- about 3 weeks ago. No constipation, black stools, hematemesis, difficulty with urination or pain with urination. No urinary frequency, bloody stools, fever, chest pain or difficulty breathing. No vaginal discharge. All systems otherwise negative, except as recorded above. PAST HISTORY See nurses notes. PROBLEMS: Ovarian Cyst. Endometriosis. Bacterial vaginosis. --18:51 Theresa Weber RAliya. ADDITIONAL SURGERIES: Laparoscopy. --18:51 Theresa Weber RAliya. SOCIAL HISTORY Heavy tobacco smoker. Regular alcohol use. History of heavy drug use: marijuana. Recently used drugs today. No recent travel. Is a local resident. FAMILY HISTORY Negative. ADDITIONAL NOTES The nursing notes have been reviewed with agreement regarding the chief complaint, HPI, ROS, PMH and patient medications and allergies. PHYSICAL EXAM Vital Signs: 09/12/2016 18:48 BP: 120/72. HR: 96. RR: 15. O2 saturation: 100%. Temp: 99.0 F. Have been reviewed as normal and appear to be correct. Appearance: Alert. Oriented X3. No acute distress. Eyes: Pupils equal, round and reactive to light. Eyes normal inspection. Neck: Normal inspection. Neck supple. CVS: Normal heart rate and rhythm. Heart sounds normal. Pulses normal. Respiratory: No respiratory distress. Breath sounds normal. Chest nontender. Abdomen: Soft and nontender. Bowel sounds normal. No organomegaly. No mass. Back: Normal inspection. Skin: Skin warm and dry. Normal skin color. No rash. Normal skin turgor. Extremities: Extremities exhibit normal ROM. No lower extremity edema. Neuro: Oriented X 3. No motor deficit. No sensory deficit. LABS, X-RAYS, AND EKG Abdominal CT: . IMPRESSION: 1. 4 cm left ovarian cysts with trace free fluid 2. Results discussed with Tasneem Trivedi All CT scans at this facility use dose modulation, iterative reconstruction, and/or weight-based dosing when appropriate to reduce radiation dose to as low as reasonably achievable. Electronically Final signed by:Donny Frederick MD 09/12/2016 8:38:38 PM. The study was interpreted by the radiologist and contemporaneously by me. Interpretation time: 2036. Laboratory Tests: UA-Culture if indicated: ([place]: 09/12/2016 19:39) ( [facility] 09/12/2016 20:08) IP Test Result Flag Units (Reference) URINE COLOR YELLOW URINE APPEARANCE CLEAR URINE GLUCOSE NEGATIVE (NEGATIVE) URINE BILIRUBIN NEGATIVE (NEGATIVE) URINE KETONE NEGATIVE (NEGATIVE) URINE SPECIFIC GRAVITY 1.010 (1.010-1.030) URINE PH 6.0 (5.0-8.0) URINE PROTEIN NEGATIVE (NEGATIVE) URINE UROBILINOGEN 0.2 EU/dL (0.2-1.0) URINE NITRITE NEGATIVE (NEGATIVE) URINE BLOOD NEGATIVE (NEGATIVE) URINE LEUK ESTERASE NEGATIVE (NEGATIVE) Urine: ([place]: 09/12/2016 19:39) ( [facility] 09/12/2016 20:10) Final results Test Result Flag Units (Reference) URINE NEGATIVE CBC w Diff: ([place]: 09/12/2016 18:50) ( [facility] 09/12/2016 19:11) Final results Test Result Flag Units (Reference) WHITE BLOOD COUNT 11.1 K/uL (4.5-11.5) RED BLOOD COUNT 4.30 M/uL (4.00-5.20) HEMOGLOBIN 13.2 gm/dL (12.0-16.0) HEMATOCRIT 38.8 % (36.0-46.0) MEAN CELL VOLUME 90 fL (80-100) MEAN CORPUSCULAR HGB 31 pg (26-34) MEAN CORPUSCULAR HGB CONC 34 g/dL (31-37) RED CELL DISTRIBUTION WIDTH 12.7 % (11.6-14.8) PLATELET COUNT 271 K/uL (150-400) NEUTROPHIL % 74.1 % (50-75) LYMPH % 16.2 L % (25-40) MONO % 8.6 % (3-14) EOSINOPHIL % 0.7 % (0-4) BASOPHIL % 0.4 % (0-2) CMP: ([place]: 09/12/2016 18:50) ( [facility] 09/12/2016 19:18) Final results Test Result Flag Units (Reference) GLUCOSE 102 mg/dL (70-110) BUN 11 mg/dL (7-18) CREATININE 0.7 mg/dL (0.6-1.3) Estimated GFR >60 mL/min Estimated GFR- >60 mL/min Note: Persistent reduction over 3 months in eGFR<60 mL/min/1.73 m2 defines CKD. Patients with eGFR values>=60 mL/min/1.73 m2 may also have CKD if evidence ofpersistent proteinuria. Additional information may be foundat www.kidney.org. SODIUM 138 mmol/L (136-145) POTASSIUM 3.7 mmol/L (3.5-5.1) CHLORIDE 102 mmol/L (98-107) CARBON DIOXIDE 22 mmol/L (21-32) CALCIUM 9.0 mg/dL (8.5-10.1) TOTAL PROTEIN 8.2 g/dL (6.4-8.2) ALBUMIN 4.0 g/dL (3.3-5.0) BILIRUBIN, TOTAL 0.4 mg/dL (0.0-1.0) ALKALINE PHOSPHATASE 70 U/L (46-116) AST (SGOT) 16 U/L (15-37) ALT (SGPT) 26 U/L (12-78) LIPASE 124 U/L (73-393) AMYLASE 72 U/L (25-115) . PROGRESS AND PROCEDURES Course of Care: informed of ct order. Patient counseled in person regarding the patient's stable condition, test results and diagnosis. 20:40. Differential Diagnosis: I considered acute appendicitis, colon cancer, urinary tract infection, ureterolithiasis, ovarian cyst, ovarian torsion, , ectopic , pelvic inflammatory disease, pelvic abscess, endometriosis and viral syndrome as a possible cause of abdominal pain in this patient. This is a partial list of diagnoses considered. Above considerations are based on history and physical exam. Differential diagnosis was discussed with patient. Disposition: Discharged home in good and improved condition (20:48). Condition: good and stable. CLINICAL IMPRESSION Acute right lower quadrant abdominal pain of undetermined cause. Single simple left ovarian cyst. No ruptured ovarian cyst, torsion of ovary or polycystic ovarian disease. INSTRUCTIONS Warnings: GENERAL WARNINGS: Return or contact your physician immediately if your condition worsens or changes unexpectedly, if not improving as expected, or if other problems arise. SPECIFICALLY, return if you develop pain in the abdomen or pelvis, fever, vomiting, the inability to keep fluids down, blood in vomitus, blood in diarrhea, fainting, lightheadedness or vaginal bleeding. Prescription Medications: Ultram 50 mg tablets: take 1-2 orally every 6 hours as needed for pain. Dispense twenty (20). No refills. Substitution is permissible. Understanding of the discharge instructions verbalized by patient. Follow-up with: Karla Alejandre DO, clinical implementation specialist, , [facility], [address] [place] [address] Follow up in about two days even if well. Call for an appointment. Summary of care provided to patient. (Electronically signed by Tasneem Trivedi A.R.N.P. 09/12/2016 22:02)
--- NOTE | 2016-09-12 20:48 | ED ORDER SUMMARY ---
..... Patient: LASHAWN TAVERA OrderSheet [facility] VisitID: [id number] [address] [place] [address] 21y, F Registration Date/Time: 09/12/2016 ORDER SHEET Weight: 51.2 kg (stated) Allergies: Naproxen GENERAL ORDERS: CBC w Diff Urgent (19:00 09/12/2016 HBivens A.R.N.P.) (Ack 19:04 AMcQuoid ER Tech1) (19:04 AMcQuoid ER Tech1) CMP Urgent (19:00 09/12/2016 HBivens A.R.N.P.) (Ack 19:04 AMcQuoid ER Tech1) (19:04 AMcQuoid ER Tech1) UA-Culture if indicated Urgent (19:00 09/12/2016 HBivens A.R.N.P.) (Ack 19:04 AMcQuoid ER Tech1) (19:06 HOShaughnessy R.N.) Amylase Urgent (19:00 09/12/2016 HBivens A.R.N.P.) (Ack 19:04 AMcQuoid ER Tech1) (19:04 AMcQuoid ER Tech1) Lipase Urgent (19:00 09/12/2016 HBivens A.R.N.P.) (Ack 19:04 AMcQuoid ER Tech1) (19:04 AMcQuoid ER Tech1) Urine Urgent (19:00 09/12/2016 HBivens A.R.N.P.) (Ack 19:04 AMcQuoid ER Tech1) (19:06 HOShaughnessy R.N.) CT Abd/Pel w Cont (No) (normal) Urgent (19:37 09/12/2016 HBivens A.R.N.P.) (Ack 19:40 AMcQuoid ER Tech1) (20:31 MCampbell) MEDICATION ORDERS: IV FLUIDS: IV Saline Lock (19:00 09/12/2016 HBivens A.R.N.P.) (19:05 HOShaughnessy R.N.) ORDER SHEET NOTES: [Electronically signed by Vanessa Gordillo R.N. (21:20 09/12/2016)] [Electronically signed by Tasneem Trivedi (22:09/12/2016)] [Electronically locked/signed by Vanessa Gordillo R.N. (:09/12/2016)]
--- NOTE | 2016-09-12 20:48 | ED CLINICAL REPORT ---
Clinical Report - Physicians/Mid Levels [facility] [address] [place] [address] 09/12/2016 18:44 Patient: LASHAWN ATVERA Time Seen: 18:49; upon arrival, initial patient contact, initial documentation, patient care assumed. Arrived- By private vehicle. Historian- patient. RETURN VISIT: recently seen in this ED by another ED physician. Seen now for a new unrelated complaint. HISTORY OF PRESENT ILLNESS Chief Complaint: ABDOMINAL PAIN. It is described as "pain" and it is described as located in the right lower quadrant. Is still present. It was gradual in onset and has been constant. No nausea, loss of appetite, vomiting or diarrhea. No recent travel. Similar symptoms previously: ( pain last time was on L not R). Recent medical care: The patient was seen recently at this facility in the emergency department. ( txed here 08/20, dx with ovarian cyst, rx hydrocodone, no f/u). REVIEW OF SYSTEMS Last normal menstrual period- about 3 weeks ago. No constipation, black stools, hematemesis, difficulty with urination or pain with urination. No urinary frequency, bloody stools, fever, chest pain or difficulty breathing. No vaginal discharge. All systems otherwise negative, except as recorded above. PAST HISTORY See nurses notes. PROBLEMS: Ovarian Cyst. Endometriosis. Bacterial vaginosis. --18:51 Theresa Weber RAliya. ADDITIONAL SURGERIES: Laparoscopy. --18:51 Theresa Weber RAliya. SOCIAL HISTORY Heavy tobacco smoker. Regular alcohol use. History of heavy drug use: marijuana. Recently used drugs today. No recent travel. Is a local resident. FAMILY HISTORY Negative. ADDITIONAL NOTES The nursing notes have been reviewed with agreement regarding the chief complaint, HPI, ROS, PMH and patient medications and allergies. PHYSICAL EXAM Vital Signs: 09/12/2016 18:48 BP: 120/72. HR: 96. RR: 15. O2 saturation: 100%. Temp: 99.0 F. Have been reviewed as normal and appear to be correct. Appearance: Alert. Oriented X3. No acute distress. Eyes: Pupils equal, round and reactive to light. Eyes normal inspection. Neck: Normal inspection. Neck supple. CVS: Normal heart rate and rhythm. Heart sounds normal. Pulses normal. Respiratory: No respiratory distress. Breath sounds normal. Chest nontender. Abdomen: Soft and nontender. Bowel sounds normal. No organomegaly. No mass. Back: Normal inspection. Skin: Skin warm and dry. Normal skin color. No rash. Normal skin turgor. Extremities: Extremities exhibit normal ROM. No lower extremity edema. Neuro: Oriented X 3. No motor deficit. No sensory deficit. LABS, X-RAYS, AND EKG Abdominal CT: . IMPRESSION: 1. 4 cm left ovarian cysts with trace free fluid 2. Results discussed with Tasneem Trivedi All CT scans at this facility use dose modulation, iterative reconstruction, and/or weight-based dosing when appropriate to reduce radiation dose to as low as reasonably achievable. Electronically Final signed by:Donny Frederick MD 09/12/2016 8:38:38 PM. The study was interpreted by the radiologist and contemporaneously by me. Interpretation time: 2036. Laboratory Tests: UA-Culture if indicated: ([place]: 09/12/2016 19:39) ( [facility]12[facility] 20:08) IP Test Result Flag Units (Reference) URINE COLOR YELLOW URINE APPEARANCE CLEAR URINE GLUCOSE NEGATIVE (NEGATIVE) URINE BILIRUBIN NEGATIVE (NEGATIVE) URINE KETONE NEGATIVE (NEGATIVE) URINE SPECIFIC GRAVITY 1.010 (1.010-1.030) URINE PH 6.0 (5.0-8.0) URINE PROTEIN NEGATIVE (NEGATIVE) URINE UROBILINOGEN 0.2 EU/dL (0.2-1.0) URINE NITRITE NEGATIVE (NEGATIVE) URINE BLOOD NEGATIVE (NEGATIVE) URINE LEUK ESTERASE NEGATIVE (NEGATIVE) Urine: ([place]: 09/12/2016 19:39) ( [facility] 09/12/2016 20:10) Final results Test Result Flag Units (Reference) URINE NEGATIVE CBC w Diff: ([place]: 09/12/2016 18:50) ( [facility] 09/12/2016 19:11) Final results Test Result Flag Units (Reference) WHITE BLOOD COUNT 11.1 K/uL (4.5-11.5) RED BLOOD COUNT 4.30 M/uL (4.00-5.20) HEMOGLOBIN 13.2 gm/dL (12.0-16.0) HEMATOCRIT 38.8 % (36.0-46.0) MEAN CELL VOLUME 90 fL (80-100) MEAN CORPUSCULAR HGB 31 pg (26-34) MEAN CORPUSCULAR HGB CONC 34 g/dL (31-37) RED CELL DISTRIBUTION WIDTH 12.7 % (11.6-14.8) PLATELET COUNT 271 K/uL (150-400) NEUTROPHIL % 74.1 % (50-75) LYMPH % 16.2 L % (25-40) MONO % 8.6 % (3-14) EOSINOPHIL % 0.7 % (0-4) BASOPHIL % 0.4 % (0-2) CMP: ([place]: 09/12/2016 18:50) ( [facility] 09/12/2016 19:18) Final results Test Result Flag Units (Reference) GLUCOSE 102 mg/dL (70-110) BUN 11 mg/dL (7-18) CREATININE 0.7 mg/dL (0.6-1.3) Estimated GFR >60 mL/min Estimated GFR- >60 mL/min Note: Persistent reduction over 3 months in eGFR<60 mL/min/1.73 m2 defines CKD. Patients with eGFR values>=60 mL/min/1.73 m2 may also have CKD if evidence ofpersistent proteinuria. Additional information may be foundat www.[email or web address].org. SODIUM 138 mmol/L (136-145) POTASSIUM 3.7 mmol/L (3.5-5.1) CHLORIDE 102 mmol/L (98-107) CARBON DIOXIDE 22 mmol/L (21-32) CALCIUM 9.0 mg/dL (8.5-10.1) TOTAL PROTEIN 8.2 g/dL (6.4-8.2) ALBUMIN 4.0 g/dL (3.3-5.0) BILIRUBIN, TOTAL 0.4 mg/dL (0.0-1.0) ALKALINE PHOSPHATASE 70 U/L (46-116) AST (SGOT) 16 U/L (15-37) ALT (SGPT) 26 U/L (12-78) LIPASE 124 U/L (73-393) AMYLASE 72 U/L (25-115) . PROGRESS AND PROCEDURES Course of Care: informed of ct order. Patient counseled in person regarding the patient's stable condition, test results and diagnosis. 20:40. Differential Diagnosis: I considered acute appendicitis, colon cancer, urinary tract infection, ureterolithiasis, ovarian cyst, ovarian torsion, , ectopic , pelvic inflammatory disease, pelvic abscess, endometriosis and viral syndrome as a possible cause of abdominal pain in this patient. This is a partial list of diagnoses considered. Above considerations are based on history and physical exam. Differential diagnosis was discussed with patient. Disposition: Discharged home in good and improved condition (20:48). Condition: good and stable. CLINICAL IMPRESSION Acute right lower quadrant abdominal pain of undetermined cause. Single simple left ovarian cyst. No ruptured ovarian cyst, torsion of ovary or polycystic ovarian disease. INSTRUCTIONS Warnings: GENERAL WARNINGS: Return or contact your physician immediately if your condition worsens or changes unexpectedly, if not improving as expected, or if other problems arise. SPECIFICALLY, return if you develop pain in the abdomen or pelvis, fever, vomiting, the inability to keep fluids down, blood in vomitus, blood in diarrhea, fainting, lightheadedness or vaginal bleeding. Prescription Medications: Ultram 50 mg tablets: take 1-2 orally every 6 hours as needed for pain. Dispense twenty (20). No refills. Substitution is permissible. Understanding of the discharge instructions verbalized by patient. Follow-up with: Karla Alejandre DO, catastrophe claims supervisor, , [facility], [address] [place] [address] Follow up in about two days even if well. Call for an appointment. Summary of care provided to patient. (Electronically signed by Tasneem Trivedi A.R.N.P. 09/12/2016 22:02)
--- NOTE | 2016-09-12 22:03 | ED MAR SUMMARY ---
..... Medication Administration Record Merged With [facility] [address] [place], [place] [id number] Patient: LASHAWN TAVERA Michelle Visit ID: [id number] 21y, F Weight: 51.2 kg Height/Length: 66 in BMI: 18.2 ALLERGIES: Naproxen
--- NOTE | 2016-09-12 22:03 | ED MAR SUMMARY ---
..... Medication Administration Record [facility] [address] [place], [place] [id number] Patient: LASHAWN TAVERA Michelle Visit ID: [id number] 21y, F Weight: 51.2 kg Height/Length: 66 in BMI: 18.2 ALLERGIES: Naproxen
--- NOTE | 2016-09-12 22:03 | ED DISCHARGE INSTRUCTIONS ---
Patient: LASHAWN TAVERA General Instructions [facility] VisitID: [id number] [address] [place] [id number] 21y, F Registration Date/Time: 09/12/2016 Acute right lower quadrant abdominal pain of undetermined cause. Single simple left ovarian cyst. No ruptured ovarian cyst, torsion of ovary or polycystic ovarian disease. INSTRUCTIONS Warnings: GENERAL WARNINGS: Return or contact your physician immediately if your condition worsens or changes unexpectedly, if not improving as expected, or if other problems arise. SPECIFICALLY, return if you develop pain in the abdomen or pelvis, fever, vomiting, the inability to keep fluids down, blood in vomitus, blood in diarrhea, fainting, lightheadedness or vaginal bleeding. Prescription Medications: Ultram 50 mg tablets: take 1-2 orally every 6 hours as needed for pain. Dispense twenty (20). No refills. Substitution is permissible. Understanding of the discharge instructions verbalized by patient. Follow-up with: Karla Alejandre DO, brooch and bracelet maker, , [facility], [address] [place] [address] Follow up in about two days even if well. Call for an appointment. Summary of care provided to patient. ADDITIONAL INFORMATION Abdominal Pain, Unknown Cause (Female) The exact cause of your abdominal (stomach) pain is not certain. This does not mean that this is something to worry about, or the right tests were not done. Everyone likes to know the exact cause of the problem, but sometimes with abdominal pain, there is no clear-cut cause, and this could be a good thing. The good news is that your symptoms can be treated, and you will feel better. Your condition does not seem serious now; however, sometimes the signs of a serious problem may take more time to appear. For this reason,it is important for you to watch for any new symptoms, problems,or worsening of your condition. Over the next few days, the abdominal pain may come and go, or be continuous. Other common symptoms can include nausea and vomiting. Sometimes it can be difficult to tell if you feel nauseous, you may just feel bad and not associate that feeling with nausea. Constipation, diarrhea, and a fever may go along with the pain. The pain may continue even if treated correctly over the following days. Depending on how things go, sometimes the cause can become clear and may require further or different treatment. Additional evaluations, medications, or tests may be needed. Home care Your health care provider may prescribe medications for pain, symptoms, or an infection. Follow the health care provider's instructions for taking these medications. General care Rest until your next exam. No strenuous activities. Try to find positions that ease discomfort. A small pillow placed on the abdomen may help relieve pain. Something warm on your abdomen (such as a heating pad) may help, but be careful not to burn yourself. Diet Do not force yourself to eat, especially if having cramps, vomiting, or diarrhea. Water is important so you do not get dehydrated. Soup may also be good. Sports drinks may also help, especially if they are not too acidic. Make sure you don't drink sugary drinks as this can make things worse. Take liquids in small amounts. Do not guzzle them. Caffeine sometimes makes the pain and cramping worse. Avoid dairy products if you have vomiting or diarrhea. Don't eat large amounts at a time. Wait a few minutes between bites. Eat a diet low in fiber (called a low-residue diet). Foods allowed include refined breads, white rice, fruit and vegetable juices without pulp, tender meats. These foods will pass more easily through the intestine. Avoid whole-grain foods, whole fruits and vegetables, meats, seeds and nuts, fried or fatty foods, dairy, alcohol and spicy foods until your symptoms go away. Follow-up care Follow up with your health care provider as instructed, or if your pain does not begin to improve in the next 24 hours. When to seek medical care Seek prompt medical care if any of the following occur: Pain gets worse or moves to the right lower abdomen New or worsening vomiting or diarrhea Swelling of the abdomen Unable to pass stool for more than three days Fever of 100.4F (38C) or higher, or as directed by your healthcare provider. Blood in vomit or bowel movements (dark red or black color) Jaundice (yellow color of eyes and skin) Weakness, dizziness Chest, arm, back, neck or jaw pain Unexpected vaginal bleeding or missed period Call 911 Call emergency services if any of the following occur: Trouble breathing Confusion Fainting or loss of consciousness Rapid heart rate Seizure Abdominal Pain,Possible Appendicitis [Repeat Exam, Female] Based on your visit today, the exact cause of your abdominal (stomach) pain is not certain. However, you do have some of the early signs of APPENDICITIS. Early in an appendix infection the symptoms can be similar to a simple "stomach ache" or "stomach flu". Therefore, the diagnosis can be hard to make. Since an appendix infection is a serious condition, it is important to know if this is the cause of your symptoms. WAITING for more time to pass and repeating the exam is the best way to find out whether you have appendicitis. Within the next 12-24 hours the cause of your stomach pain should become clear. It is important for you to watch for any new symptoms or worsening of your condition. (See below). Home Care: Rest until your next exam. No strenuous activities. Eat a diet low in fiber (called a low-residue diet). Foods allowed include refined breads, white rice, fruit and vegetable juices without pulp, tender meats. These foods will pass more easily through the intestine. Avoid whole-grain foods, whole fruits and vegetables, meats, seeds and nuts, fried or fatty foods, dairy, alcohol and spicy foods until your symptoms go away. In some cases, you may be asked not to eat or drink anything until you are re-examined. Return for another exam exactly as directed. Follow Up with your doctor or this facility as directed. Get Prompt Medical Attention if any of the following occur: Pain gets worse or moves to the right lower abdomen New or worsening vomiting or diarrhea Swelling of the abdomen Unable to pass stool for more than three days Fever of 100.4F (38C) or higher, or as directed by your healthcare provider Blood in vomit or bowel movements (dark red or black color) Weakness, dizziness or fainting Unexpected vaginal bleeding Ovarian Cyst The ovary is a small organ located on each side of the uterus. During each menstrual cycle a tiny egg sac forms in the ovary. If the egg is released but does not occur, this sac usually dissolves. Sometimes, the sac may fill with fluid. It then enlarges into a painful cyst. Usually the cyst will rupture or shrink on its own. In either case, the pain gradually goes away over the next 1-3 days. If the cyst does not shrink or rupture, it may cause continued pain. Home Care: Rest in bed and avoid heavy exertion until you are feeling better. Heat to the lower abdomen usually helps (heating pad or hot packs -- a small towel soaked in hot water). You may use acetaminophen (Tylenol) or ibuprofen (Motrin, Advil) to control pain, unless another pain medicine was prescribed. [NOTE: If you have chronic liver or kidney disease or ever had a stomach ulcer or GI bleeding, talk with your doctor before using these medicines.] Follow Up: See your doctor within the next 2-3 days if your pain doesnt improve. Otherwise, follow up with your doctor after your next period or as directed by our staff. Get Prompt Medical Attention if any of the following occur: Pain worsens or fails to respond to the above measures Fever of 100.4F (38C) or higher, or as directed by your healthcare provider Heavy vaginal bleeding (soaking one pad an hour for three hours) You feel weak or dizzy Fainting Passage of a pink or stokes tissue with menstrual bleeding Pelvic Pain, Uncertain Cause Based on your visit today, the exact cause of your pelvic pain is not certain. But your condition does not appear to be serious at this time. However, the signs of a serious problem may take more time to appear. Therefore, it is important for you to watch for any new symptoms or worsening of your condition. Home Care: Rest until you are feeling better. Avoid sexual intercourse until your pain goes away. You may use acetaminophen (Tylenol) or ibuprofen (Motrin, Advil) to control pain, unless another medicine was prescribed. [NOTE: If you have chronic liver or kidney disease or ever had a stomach ulcer or GI bleeding, talk with your doctor before using these medicines.] Follow Up with your doctor as advised. If a culture test was taken, call in two days for the results. If the culture is positive, you will be given more advice at that time. Otherwise, follow-up with your doctor or this facility as instructed. Get Prompt Medical Attention if any of the following occur: Fever of 100.4F (38C) or higher, or as directed by your healthcare provider Vaginal discharge Worsening pain Weakness, dizziness or fainting Unexpected vaginal bleeding or passage of stokes or white tissue from the vagina Pain that moves to the right lower abdomen Tramadol Hydrochloride Oral tablet What is this medicine? TRAMADOL (TRA ma dole) is a pain reliever. It is used to treat moderate to severe pain in adults. How should I use this medicine? Take this medicine by mouth with a full glass of water. Follow the directions on the prescription label. If the medicine upsets your stomach, take it with food or milk. Do not take more medicine than you are told to take. Talk to your end worker regarding the use of this medicine in children. Special care may be needed. What side effects may I notice from receiving this medicine? Side effects that you should report to your doctor or health healthcare financial analyst as soon as possible: allergic reactions like skin rash, itching or hives, swelling of the face, lips, or tongue breathing difficulties, wheezing confusion itching light headedness or fainting spells redness, blistering, peeling or loosening of the skin, including inside the mouth seizures Side effects that usually do not require medical attention (report to your doctor or health healthcare financial analyst if they continue or are bothersome): constipation dizziness drowsiness headache nausea, vomiting What may interact with this medicine? Do not take this medicine with any of the following medications: MAOIs like Carbex, Eldepryl, Marplan, Nardil, and Parnate This medicine may also interact with the following medications: alcohol or medicines that contain alcohol antihistamines benzodiazepines bupropion carbamazepine or oxcarbazepine clozapine cyclobenzaprine digoxin furazolidone linezolid medicines for depression, anxiety, or psychotic disturbances medicines for migraine headache like almotriptan, eletriptan, frovatriptan, naratriptan, rizatriptan, sumatriptan, zolmitriptan medicines for pain like pentazocine, buprenorphine, butorphanol, meperidine, nalbuphine, and propoxyphene medicines for sleep muscle relaxants naltrexone phenobarbital phenothiazines like perphenazine, thioridazine, chlorpromazine, mesoridazine, fluphenazine, prochlorperazine, promazine, and trifluoperazine procarbazine warfarin What if I miss a dose? If you miss a dose, take it as soon as you can. If it is almost time for your next dose, take only that dose. Do not take double or extra doses. Where should I keep my medicine? Keep out of the reach of children. Store at room temperature between 15 and 30 degrees C (59 and 86 degrees F). Keep container tightly closed. Throw away any unused medicine after the expiration date. What should I tell my health care provider before I take this medicine? They need to know if you have any of these conditions: brain tumor depression drug abuse or addiction head injury if you frequently drink alcohol containing drinks kidney disease or trouble passing urine liver disease lung disease, asthma, or breathing problems seizures or epilepsy suicidal thoughts, plans, or attempt; a previous suicide attempt by you or a family member an unusual or allergic reaction to tramadol, codeine, other medicines, foods, dyes, or preservatives or trying to get breast-feeding What should I watch for while using this medicine? Tell your doctor or health healthcare financial analyst if your pain does not go away, if it gets worse, or if you have new or a different type of pain. You may develop tolerance to the medicine. Tolerance means that you will need a higher dose of the medicine for pain relief. Tolerance is normal and is expected if you take this medicine for a long time. Do not suddenly stop taking your medicine because you may develop a severe reaction. Your body becomes used to the medicine. This does NOT mean you are addicted. Addiction is a behavior related to getting and using a drug for a non-medical reason. If you have pain, you have a medical reason to take pain medicine. Your doctor will tell you how much medicine to take. If your doctor wants you to stop the medicine, the dose will be slowly lowered over time to avoid any side effects. You may get drowsy or dizzy. Do not drive, use machinery, or do anything that needs mental alertness until you know how this medicine affects you. Do not stand or sit up quickly, especially if you are an older patient. This reduces the risk of dizzy or fainting spells. Alcohol can increase or decrease the effects of this medicine. Avoid alcoholic drinks. You may have constipation. Try to have a bowel movement at least every 2 to 3 days. If you do not have a bowel movement for 3 days, call your doctor or health healthcare financial analyst. Your mouth may get dry. Chewing sugarless gum or sucking hard candy, and drinking plenty of water may help. Contact your doctor if the problem does not go away or is severe. You have been given the following additional information: Abdominal Pain, Unknown Cause, (Female) Abdominal Pain, Possible Appendicitis (Female) Ovarian Cyst Pelvic Pain, Unknown Cause Tramadol Hydrochloride Oral tablet (Electronically signed by Tasneem Trivedi A.R.N.P. 09/12/2016 22:02)
--- NOTE | 2016-09-12 22:03 | ED MED RECONCILIATION SUMMARY ---
Patient: LASHAWN TAVERA Medication Reconciliation Report [facility] VisitID: [id number] [address] [place] [address] 21y, F Registration Date/Time: 09/12/2016 Weight: 51.2 kg Height/Length: 66 in. BMI: 18.2 ALLERGIES: Naproxen The patient's Home Medications are listed below: THE FOLLOWING MEDICATIONS NEED TO BE RECONCILED: Depo-Medrol Injection The source(s) of the original Home Medication information: Not obtained. The following Medications were given to the patient in the Emergency Department: None. The following Medications were prescribed to the patient: Ultram 50 mg tablets: take 1-2 orally every 6 hours as needed for pain. Dispense twenty (20). No refills. Substitution is permissible. -- Tasneem Trivedi A.R.N.P.
--- NOTE | 2016-09-12 22:03 | ED MED RECONCILIATION SUMMARY ---
Patient: LASHAWN TAVERA Medication Reconciliation Report [facility] VisitID: [id number] [address] [place] [address] 21y, F Registration Date/Time: 09/12/2016 Weight: 51.2 kg Height/Length: 66 in. BMI: 18.2 ALLERGIES: Naproxen The patient's Home Medications are listed below: THE FOLLOWING MEDICATIONS NEED TO BE RECONCILED: Depo-Medrol Injection The source(s) of the original Home Medication information: Not obtained. The following Medications were given to the patient in the Emergency Department: None. The following Medications were prescribed to the patient: Ultram 50 mg tablets: take 1-2 orally every 6 hours as needed for pain. Dispense twenty (20). No refills. Substitution is permissible. -- Tasneem Trivedi A.R.N.P.
== END 2016-09-12 21:10 | disposition home or self-care (01) ==
LOC: ED SRH 18:43
DX: R10.31 Right lower quadrant pain (principal); N83.292 Other ovarian cyst, left side
CPT/HCPCS: 90004; 90100; 92235; 92530; 93070; 95059

== ENCOUNTER 2016-11-15 18:54 | Emergency (ER) | payer OTHER ==
--- NOTE | 2016-11-15 20:31 | ED NURSING NOTES ---
Clinical Report - Nurses [facility] [address] [place] [address] 11/15/2016 18:54 Patient: LASHAWN TAVERA TRIAGE Triage time 18:58 Apr 2016. Acuity: LEVEL 3. Chief Complaint: ABDOMINAL PAIN and (Patient has been having left sided pain for a couple months now, sharp stabbing pain comes and goes). 19:11 11/15/16. SEPSIS SCREEN: Sepsis Screen. Negative (no infection suspected/documented). ANASTASIA COMA SCORE: Anastasia Coma Scale: 15- eyes open spontaneously (4); best verbal response- oriented x 4 (5); best motor response- obeys commands (6). --19:11 Kari John R.N. 18:58 11/15/16. BP: 137/94 (regular adult cuff) taken on the right arm, while sitting. HR: 67. RR: 18. O2 saturation: 100% on room air. Temp: 98.6 F (oral). Pain level now: 03/08. --19:11 Kari John R.N. Weight: 52.1 kg stated. Height/Length: 66 inches Per Patient. BMI: 18.5. --19:02 Kari John R.N. Medications Seasonal IC Oral. --19:03 Kari John R.N. The following entry was struck by Kari John R.N., 19:02 (11/15/16) Reason - other. <<STRICKEN ENTRY-- Depo-Medrol Injection. --18:59 Kari John R.N. --END STRIKE>>. Allergies Naproxen. (faint) --18:59 Kari John R.N. History Arrived by private vehicle. Historian: patient. Accompanied by friend. Onset. (2 hours ago). She has had nausea and moderate, sharp abdominal pain. The pain is described as located in the left side of the abdomen. Treatment PRUNER: None. (heating pad). PAST MEDICAL HX: Last normal menstrual period- Jul 2016. SOCIAL HX: Light tobacco smoker- less than 1/2 a pack per day. History of weekly drug use: marijuana. No alcohol use. No recent travel. No infectious disease exposure. No known contact with a sick individual. ABUSE ASSESSMENT: No report of abuse. --19:11 Kari John R.N. PROBLEMS: Abdominal Pain. Ovarian Cyst. Endometriosis. Bacterial vaginosis. --18:59 Kari John R.N. ADDITIONAL SURGERIES: Laparoscopy. --18:59 Kari John R.N. Interventions ID band on patient. To treatment room. --19:11 Kari John R.N. PHYSICAL ASSESSMENT 19:12 11/15/16. Ambulatory to room. GENERAL / NEURO / PSYCH: Alert. Oriented X 4. Appears in pain. HEENT: Mucous membranes are pink. RESPIRATORY: Respirations not labored. Breath sounds within normal limits. CVS: Normal sinus rhythm noted. Capillary refill less than 2 seconds. GI / : The patient has had nausea. Abdomen soft. Guarding present in the left upper quadrant, left side of the abdomen and left lower quadrant. Stool color normal. SKIN: Skin is warm. --19:12 Kari John R.N. GENERAL / NEURO / PSYCH: [place] Coma Scale: 15- eyes open spontaneously (4); best verbal response- oriented x 4 (5); best motor response- obeys commands (6). --20:00 Ricci Romo R.N. 20:06 11/15/16. BP: 105/65. HR: 64. RR: 20 (unlabored). O2 saturation: 95% on room air. --20:07 Ricci Romo R.N. NURSING PROGRESS NOTES The plan of care for this patient has been created. Patient gowned. Head of bed elevated. Reassurance given. Two patient identifiers checked. Call light placed in reach. Side rails up x 2. Bed placed in lowest position. Brakes of bed on. Patient ready for evaluation- chart flagged and PA notified. --19:12 Kari Jonh R.N. ( US in with patient). --19:22 Kari John R.N. Urine test negative. Double verified with Ted NOVAK. --19:24 Kari John R.N. Care transferred and report given (Tirso NOVAK). --19:26 Kari John R.N. 19:31 11/15/2016 Hydrocodone-APAP (Hydrocodone-Acetaminophen) PO 5/325 mg Tablets 2 tab given. Allergies verified, confirmed 5 rights and sedative warning given to the patient. --19:31 Daniele Floyd R.N. ( UltraSound completed. Chivo Romero with patient.). --19:43 Ricci Romo R.N. ( Pelvic exam setup. Apurva ([facility]) luis carlos with KAL Ricks, for pelvic exam). --19:49 Ricci Romo R.N. 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 --19:50 Ricci Romo R.N. DISPOSITION / DISCHARGE Condition at departure: stable. No learning barriers present. Discharge instructions provided and reviewed with the patient. Reviewed warnings. Reviewed medication(s) side effects, precautions, dosing and course information. Prescription(s) given to the patient. Treatments reviewed. Reviewed referrals for followup. Patient verbalized understanding. Written instructions provided in Amharic. The patient was discharged home and accompanied by floor framer. She left the Emergency Department ambulatory and via private vehicle. Rodent Exterminator driving. --20:36 Ricci Romo R.N. Departure time: 20:41. --20:41 Ricci Romo R.N. 20:40 11/15/16. BP: 135/83. HR: 73. RR: 20 (regular and unlabored). O2 saturation: 100% on room air. Pain level now: 12/06. --20:41 Ricci Romo R.N. Locked/Released at 11/15/2016 20:41 by Ricci Romo R.N.
--- NOTE | 2016-11-15 20:31 | ED NURSING NOTES ---
Clinical Report - Nurses [facility] [address] [place] [address] 11/15/2016 18:54 Patient: LASHAWN TAVERA TRIAGE Triage time 18:58 Apr 2016. Acuity: LEVEL 3. Chief Complaint: ABDOMINAL PAIN and (Patient has been having left sided pain for a couple months now, sharp stabbing pain comes and goes). 19:11 11/15/16. SEPSIS SCREEN: Sepsis Screen. Negative (no infection suspected/documented). ANASTASIA COMA SCORE: Anastasia Coma Scale: 15- eyes open spontaneously (4); best verbal response- oriented x 4 (5); best motor response- obeys commands (6). --19:11 Kari John R.N. 18:58 11/15/16. BP: 137/94 (regular adult cuff) taken on the right arm, while sitting. HR: 67. RR: 18. O2 saturation: 100% on room air. Temp: 98.6 F (oral). Pain level now: 03/08. --19:11 Kari John R.N. Weight: 52.1 kg stated. Height/Length: 66 inches Per Patient. BMI: 18.5. --19:02 Kari John R.N. Medications Seasonal IC Oral. --19:03 Kari John R.N. The following entry was struck by Kari John R.N., 19:02 (11/15/16) Reason - other. <<STRICKEN ENTRY-- Depo-Medrol Injection. --18:59 Kari John R.N. --END STRIKE>>. Allergies Naproxen. (faint) --18:59 Kari John R.N. History Arrived by private vehicle. Historian: patient. Accompanied by friend. Onset. (2 hours ago). She has had nausea and moderate, sharp abdominal pain. The pain is described as located in the left side of the abdomen. Treatment ROADWAY TECHNICIAN: None. (heating pad). PAST MEDICAL HX: Last normal menstrual period- Jul 2016. SOCIAL HX: Light tobacco smoker- less than 1/2 a pack per day. History of weekly drug use: marijuana. No alcohol use. No recent travel. No infectious disease exposure. No known contact with a sick individual. ABUSE ASSESSMENT: No report of abuse. --19:11 Kari John R.N. PROBLEMS: Abdominal Pain. Ovarian Cyst. Endometriosis. Bacterial vaginosis. --18:59 Kari John R.N. ADDITIONAL SURGERIES: Laparoscopy. --18:59 Kari John R.N. Interventions ID band on patient. To treatment room. --19:11 Kari John R.N. PHYSICAL ASSESSMENT 19:12 11/15/16. Ambulatory to room. GENERAL / NEURO / PSYCH: Alert. Oriented X 4. Appears in pain. HEENT: Mucous membranes are pink. RESPIRATORY: Respirations not labored. Breath sounds within normal limits. CVS: Normal sinus rhythm noted. Capillary refill less than 2 seconds. GI / : The patient has had nausea. Abdomen soft. Guarding present in the left upper quadrant, left side of the abdomen and left lower quadrant. Stool color normal. SKIN: Skin is warm. --19:12 Kari John R.N. GENERAL / NEURO / PSYCH: [place] Coma Scale: 15- eyes open spontaneously (4); best verbal response- oriented x 4 (5); best motor response- obeys commands (6). --20:00 Ricci Romo R.N. 20:06 11/15/16. BP: 105/65. HR: 64. RR: 20 (unlabored). O2 saturation: 95% on room air. --20:07 Ricci Romo R.N. NURSING PROGRESS NOTES The plan of care for this patient has been created. Patient gowned. Head of bed elevated. Reassurance given. Two patient identifiers checked. Call light placed in reach. Side rails up x 2. Bed placed in lowest position. Brakes of bed on. Patient ready for evaluation- chart flagged and PA notified. --19:12 Kari John R.N. ( US in with patient). --19:22 Krai John R.N. Urine test negative. Double verified with Ted NOVAK. --19:24 Kari John R.N. Care transferred and report given (Tirso NOVAK). --19:26 Kari John R.N. 19:31 11/15/2016 Hydrocodone-APAP (Hydrocodone-Acetaminophen) PO 5/325 mg Tablets 2 tab given. Allergies verified, confirmed 5 rights and sedative warning given to the patient. --19:31 Daniele Floyd R.N. ( UltraSound completed. Chivo Romero with patient.). --19:43 Ricci Romo R.N. ( Pelvic exam setup. Apurva ([facility]) luis carlos with KAL Ricks, for pelvic exam). --19:49 Ricci Romo R.N. 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 --19:50 Ricci Romo R.N. DISPOSITION / DISCHARGE Condition at departure: stable. No learning barriers present. Discharge instructions provided and reviewed with the patient. Reviewed warnings. Reviewed medication(s) side effects, precautions, dosing and course information. Prescription(s) given to the patient. Treatments reviewed. Reviewed referrals for followup. Patient verbalized understanding. Written instructions provided in Estonian. The patient was discharged home and accompanied by frame welder cargo utility trailers. She left the Emergency Department ambulatory and via private vehicle. Lands Resource Manager driving. --20:36 Ricci Romo R.N. Departure time: 20:41. --20:41 Ricci Romo R.N. 20:40 11/15/16. BP: 135/83. HR: 73. RR: 20 (regular and unlabored). O2 saturation: 100% on room air. Pain level now: 12/06. --20:41 Ricci Romo R.N. Locked/Released at 11/15/2016 20:41 by Ricci Romo R.N.
--- NOTE | 2016-11-15 20:31 | ED ORDER SUMMARY ---
..... Patient: LASHAWN TAVERA OrderSheet [facility] VisitID: [id number] [place] [address] 21y, F Registration Date/Time: 11/15/2016 ORDER SHEET Weight: 52.1 kg (stated) Allergies: Naproxen GENERAL ORDERS: US Pelvic Complete w Transvag Urgent (19:08 11/15/2016 EKoroleva P.A.-C) (Ack 19:23 CHagerty ER Sheet Rock Applier) (19:42 MCampbell) CBC w Diff Urgent (19:09 11/15/2016 EKoroleva P.A.-C) (Ack 19:23 CHagerty ER Sheet Rock Applier) (20:05 DDavis R.N.) UA-Culture if indicated Urgent (19:09 11/15/2016 EKoroleva P.A.-C) (19:13 JSanders R.N.) CMP Urgent (19:09 11/15/2016 EKoroleva P.A.-C) (Ack 19:23 CHagerty ER Sheet Rock Applier) (20:05 DDavis R.N.) Urine Urgent (19:09 11/15/2016 EKoroleva P.A.-C) (19:13 JSanders R.N.) POC - Urine hCG (19:09 11/15/2016 EKoroleva P.A.-C) (19:24 JSanders R.N.) Wet Prep (Cervix) (c) Urgent (19:25 11/15/2016 EKoroleva P.A.-C) (Ack 19:26 CHagerty ER Sheet Rock Applier) (20:05 DDavis R.N.) Pelvic Exam Setup (19:26 11/15/2016 EKoroleva P.A.-C) (19:37 CHategekimana) UA-Culture if indicated (second urine, clean) Urgent (19:46 11/15/2016 EKoroleva P.A.-C) (Ack 19:48 CHagerty ER Sheet Rock Applier) (20:05 DDavis R.N.) GC/Chlamydia (Cervix) (c) Urgent (20:05 11/15/2016 Alex Flores) (20:05 DDavis R.N.) MEDICATION ORDERS: Hydrocodone-APAP PO 10/650 mg (NOW, HIGH ALERT MEDICATION) (19:20 11/15/2016 Alex lFores) (19:31 GMarshall R.N.) IV FLUIDS: ORDER SHEET NOTES: [Electronically signed by Mattie Romero P.A.-C (20:39 11/15/2016)] [Electronically signed by Ricci Romo R.N. (20:41 11/15/2016)] [Electronically locked/signed by Ricci Rmoo R.N. (20:41 11/15/2016)]
--- NOTE | 2016-11-15 20:31 | ED CLINICAL REPORT ---
Clinical Report - Physicians/Mid Levels [facility] [address] [place] [address] 11/15/2016 18:54 Patient: LASHAWN TAVERA Time Seen: 19:15 Nov 15 2016. Arrived- By private vehicle. Historian- patient and friend. HISTORY OF PRESENT ILLNESS Chief Complaint: PELVIC PAIN. This started 3 hours MANAGER CHEMISTRY and still present. No vaginal pain or low back pain. (Patient reports pelvic pain over the last few months, worse today over the last 3 hours with sudden worsening acute changes. Reports similar pain in the right side, her pain is now on the left side. NO recent illness. PT with no recent menses for 3-4 months. ON oral contraception. Patient denies fevers. Denies current status. Denies any diarrhea or abdominal pain associated with emesis.). REVIEW OF SYSTEMS No vomiting, diarrhea, cough, difficulty breathing or skin rash. All systems otherwise negative, except as recorded above. SOCIAL HISTORY Smoker- current status unknown. History of drug use: marijuana. No alcohol use. ADDITIONAL NOTES The nursing notes have been reviewed. PHYSICAL EXAM Vital Signs: 11/15/2016 18:58 BP: 137/94. HR: 67. RR: 18. O2 saturation: 100%. Temp: 98.6 F. Pain level now: 8/10. Appearance: Alert. HEENT: Normal external inspection. Neck: Neck supple. CVS: Heart sounds normal. Rate normal. Respiratory: No respiratory distress. Breath sounds normal. Abdomen: Soft and nontender. Bowel sounds normal. No mass. No obesity, abdominal tenderness, mass present or gravid uterus. Back: No CVA tenderness. : Speculum and bimanual exam performed. External inspection normal. A scant amount of thick and white vaginal discharge present. No herpes-like lesions. Bimanual exam normal. Mild right adnexal tenderness; uterine tenderness; left adnexal tenderness. Not mild cervical motion tenderness. Uterus not enlarged. No uterine tenderness. No adnexal tenderness. (chaperoned with FACILITIES OPERATIONS TECHNICIAN). Skin: Skin warm. Normal skin color. LABS, X-RAYS, AND EKG Laboratory Tests: UA-Culture if indicated: (STERLING: 11/15/2016 20:00) ( MsgRcvd 11/15/2016 20:21) Final results Test Result Flag Units (Reference) URINE COLOR YELLOW URINE APPEARANCE CLEAR URINE GLUCOSE NEGATIVE (NEGATIVE) URINE BILIRUBIN NEGATIVE (NEGATIVE) URINE KETONE NEGATIVE (NEGATIVE) URINE SPECIFIC GRAVITY 1.010 (1.010-1.030) URINE PH 6.5 (5.0-8.0) URINE PROTEIN NEGATIVE (NEGATIVE) URINE UROBILINOGEN 0.2 EU/dL (0.2-1.0) URINE NITRITE NEGATIVE (NEGATIVE) URINE BLOOD NEGATIVE (NEGATIVE) URINE LEUK ESTERASE NEGATIVE (NEGATIVE) URINE RBC NONE SEEN rbc/hpf (0-1) URINE WBC 0-1 wbc/hpf (0-1) URINE EPITHELIAL CELLS 1-3 EPI/hpf (0-5) URINE BACTERIA TRACE (<1+) (NONE SEEN) URINE COMMENT CULT NOT INDICATED URINE CULTURES ARE SET-UP BASED ON THE FOLLOWING CRITERIA:POSITIVE NITRITEPOSITIVE LEUKOCYTE ESTERASEGREATER THAN 10 WHITE BLOOD CELLSMODERATE (2+) OR GREATER BACTERIA UA-Culture if indicated: (STERLING: 11/15/2016 19:15) ( MsgRcvd 11/15/2016 19:44) Final results Test Result Flag Units (Reference) URINE COLOR YELLOW URINE APPEARANCE SL CLOUDY URINE GLUCOSE NEGATIVE (NEGATIVE) URINE BILIRUBIN NEGATIVE (NEGATIVE) URINE KETONE NEGATIVE (NEGATIVE) URINE SPECIFIC GRAVITY >= 1.030 (1.010-1.030) URINE PH 5.5 (5.0-8.0) URINE PROTEIN NEGATIVE (NEGATIVE) URINE UROBILINOGEN 0.2 EU/dL (0.2-1.0) URINE NITRITE NEGATIVE (NEGATIVE) URINE BLOOD NEGATIVE (NEGATIVE) URINE LEUK ESTERASE NEGATIVE (NEGATIVE) URINE RBC NONE SEEN rbc/hpf (0-1) URINE WBC 3-5 wbc/hpf (0-1) URINE EPITHELIAL CELLS >15 EPI/hpf (0-5) URINE BACTERIA FEW (1+) (NONE SEEN) URINE COMMENT CULT NOT INDICATED URINE CULTURES ARE SET-UP BASED ON THE FOLLOWING CRITERIA:POSITIVE NITRITEPOSITIVE LEUKOCYTE ESTERASEGREATER THAN 10 WHITE BLOOD CELLSMODERATE (2+) OR GREATER BACTERIA Urine: (STERLING: 11/15/2016 19:15) ( [facility] 11/15/2016 19:29) Final results Test Result Flag Units (Reference) URINE NEGATIVE CBC w Diff: (STERLING: 11/15/2016 20:00) ( [facility] 11/15/2016 20:10) Final results Test Result Flag Units (Reference) WHITE BLOOD COUNT 8.1 K/uL (4.5-11.5) RED BLOOD COUNT 4.49 M/uL (4.00-5.20) HEMOGLOBIN 13.6 gm/dL (12.0-16.0) HEMATOCRIT 39.9 % (36.0-46.0) MEAN CELL VOLUME 89 fL (80-100) MEAN CORPUSCULAR HGB 30 pg (26-34) MEAN CORPUSCULAR HGB CONC 34 g/dL (31-37) RED CELL DISTRIBUTION WIDTH 12.5 % (11.6-14.8) PLATELET COUNT 298 K/uL (150-400) NEUTROPHIL % 57.3 % (50-75) LYMPH % 33.3 % (25-40) MONO % 6.1 % (3-14) EOSINOPHIL % 2.6 % (0-4) BASOPHIL % 0.7 % (0-2) CMP: (STERLING: 11/15/2016 20:00) ( [facility] 11/15/2016 20:24) Final results Test Result Flag Units (Reference) GLUCOSE 87 mg/dL (70-110) BUN 13 mg/dL (7-18) CREATININE 0.8 mg/dL (0.6-1.3) Estimated GFR >60 mL/min Estimated GFR- >60 mL/min Note: Persistent reduction over 3 months in eGFR<60 mL/min/1.73 m2 defines CKD. Patients with eGFR values>=60 mL/min/1.73 m2 may also have CKD if evidence ofpersistent proteinuria. Additional information may be foundat www.kidney.org. SODIUM 141 mmol/L (136-145) POTASSIUM 3.6 mmol/L (3.5-5.1) CHLORIDE 107 mmol/L (98-107) CARBON DIOXIDE 25 mmol/L (21-32) CALCIUM 8.8 mg/dL (8.5-10.1) TOTAL PROTEIN 8.0 g/dL (6.4-8.2) ALBUMIN 4.0 g/dL (3.3-5.0) BILIRUBIN, TOTAL 0.4 mg/dL (0.0-1.0) ALKALINE PHOSPHATASE 58 U/L (46-116) AST (SGOT) 16 U/L (15-37) ALT (SGPT) 24 U/L (12-78) Wet Prep: (STERLING: 11/15/2016 19:53) ( MsgRcvd 11/15/2016 20:03) Final results SPECIMEN DESCRIPTION: C Test Result Flag Units (Reference) WET MOUNT CLUE CELLS:: NONE EPITHELIAL CELLS: MODERATE -- SOURCE?: CERVIX WHITE BLOOD CELLS: FEW TRICHOMONAS:: NONE -- YEAST:: NONE . Note - Tests: (US: neg for any acute process, torsion, ectopic.). PROGRESS AND PROCEDURES Course of Care: No signs of cervical motion tenderness. Second urinalysis unremarkable. Wet prep negative. During the time in the ED, the following DDX were considered: acute surgical abdomen, hemodynamic or metabolic instability, dehydration, gastroenteritis-viral, food borne, or bacterial, food intolerance, irritable or inflammatory bowel, infection, sepsis. 11/15/2016 20:06 BP: 105/65. HR: 64. RR: 20. O2 saturation: 95%. Patient is stable. Symptoms better. Patient/family counseled. Differential Diagnosis: I considered perforated peptic ulcer, acute cholecystitis, pancreatitis, acute appendicitis, diverticulitis, urinary tract infection, cystitis, ovarian cyst, pelvic inflammatory disease, hernia and abdominal aortic aneurysm as a possible cause of pelvic pain in this patient. This is a partial list of diagnoses considered. Disposition: Discharged. Condition: good. CLINICAL IMPRESSION Pelvic pain. INSTRUCTIONS (Labs and US here look good Breakthrough pain outside of TYlneol = VICODIN). Warnings: Further evaluation is necessary. Prescription Medications: Hydrocodone/APAP 5mg / 325mg: take 1 orally every 6 hours as needed for pain. Dispense twelve (12). No refill. Understanding of the discharge instructions verbalized by patient. Follow-up with: Joe Hood MD, Obstetrics/Gynecology, , [facility], [address] [place] [address] Follow up. Call for the next available appointment. (Electronically signed by Mattie Romero P.A.-C 11/15/2016 20:39)
--- NOTE | 2016-11-15 20:31 | ED ORDER SUMMARY ---
..... Patient: LASHAWN TAVERA OrderSheet [facility] VisitID: [id number] [place] [address] 21y, F Registration Date/Time: 11/15/2016 ORDER SHEET Weight: 52.1 kg (stated) Allergies: Naproxen GENERAL ORDERS: US Pelvic Complete w Transvag Urgent (19:08 11/15/2016 EKoroleva P.A.-C) (Ack 19:23 CHagerty ER Glass Technician) (19:42 MCampbell) CBC w Diff Urgent (19:09 11/15/2016 EKoroleva P.A.-C) (Ack 19:23 CHagerty ER Glass Technician) (20:05 DDavis R.N.) UA-Culture if indicated Urgent (19:09 11/15/2016 EKoroleva P.A.-C) (19:13 JSanders R.N.) CMP Urgent (19:09 11/15/2016 EKoroleva P.A.-C) (Ack 19:23 CHagerty ER Glass Technician) (20:05 DDavis R.N.) Urine Urgent (19:09 11/15/2016 EKoroleva P.A.-C) (19:13 JSanders R.N.) POC - Urine hCG (19:09 11/15/2016 EKoroleva P.A.-C) (19:24 JSanders R.N.) Wet Prep (Cervix) (c) Urgent (19:25 11/15/2016 EKoroleva P.A.-C) (Ack 19:26 CHagerty ER Glass Technician) (20:05 DDavis R.N.) Pelvic Exam Setup (19:26 11/15/2016 EKoroleva P.A.-C) (19:37 CHategekimana) UA-Culture if indicated (second urine, clean) Urgent (19:46 11/15/2016 EKoroleva P.A.-C) (Ack 19:48 CHagerty ER Glass Technician) (20:05 DDavis R.N.) GC/Chlamydia (Cervix) (c) Urgent (20:05 11/15/2016 Alex Flores) (20:05 DDavis R.N.) MEDICATION ORDERS: Hydrocodone-APAP PO 10/650 mg (NOW, HIGH ALERT MEDICATION) (19:20 11/15/2016 Alex Flores) (19:31 GMarshall R.N.) IV FLUIDS: ORDER SHEET NOTES: [Electronically signed by Mattie Romero P.A.-C (20:39 11/15/2016)] [Electronically signed by Ricci Romo R.N. (20:41 11/15/2016)] [Electronically locked/signed by Ricci Romo R.N. (20:41 11/15/2016)]
--- NOTE | 2016-11-15 20:31 | ED CLINICAL REPORT ---
Clinical Report - Physicians/Mid Levels [facility] [address] [place] [address] 11/15/2016 18:54 Patient: LASHAWN TAVERA Time Seen: 19:15 Nov 15 2016. Arrived- By private vehicle. Historian- patient and friend. HISTORY OF PRESENT ILLNESS Chief Complaint: PELVIC PAIN. This started 3 hours STITCHER AROUND and still present. No vaginal pain or low back pain. (Patient reports pelvic pain over the last few months, worse today over the last 3 hours with sudden worsening acute changes. Reports similar pain in the right side, her pain is now on the left side. NO recent illness. PT with no recent menses for 3-4 months. ON oral contraception. Patient denies fevers. Denies current status. Denies any diarrhea or abdominal pain associated with emesis.). REVIEW OF SYSTEMS No vomiting, diarrhea, cough, difficulty breathing or skin rash. All systems otherwise negative, except as recorded above. SOCIAL HISTORY Smoker- current status unknown. History of drug use: marijuana. No alcohol use. ADDITIONAL NOTES The nursing notes have been reviewed. PHYSICAL EXAM Vital Signs: 11/15/2016 18:58 BP: 137/94. HR: 67. RR: 18. O2 saturation: 100%. Temp: 98.6 F. Pain level now: 8/10. Appearance: Alert. HEENT: Normal external inspection. Neck: Neck supple. CVS: Heart sounds normal. Rate normal. Respiratory: No respiratory distress. Breath sounds normal. Abdomen: Soft and nontender. Bowel sounds normal. No mass. No obesity, abdominal tenderness, mass present or gravid uterus. Back: No CVA tenderness. : Speculum and bimanual exam performed. External inspection normal. A scant amount of thick and white vaginal discharge present. No herpes-like lesions. Bimanual exam normal. Mild right adnexal tenderness; uterine tenderness; left adnexal tenderness. Not mild cervical motion tenderness. Uterus not enlarged. No uterine tenderness. No adnexal tenderness. (chaperoned with CHIEF RADIATION THERAPIST). Skin: Skin warm. Normal skin color. LABS, X-RAYS, AND EKG Laboratory Tests: UA-Culture if indicated: (STERLNIG: 11/15/2016 20:00) ( MsgRcvd 11/15/2016 20:21) Final results Test Result Flag Units (Reference) URINE COLOR YELLOW URINE APPEARANCE CLEAR URINE GLUCOSE NEGATIVE (NEGATIVE) URINE BILIRUBIN NEGATIVE (NEGATIVE) URINE KETONE NEGATIVE (NEGATIVE) URINE SPECIFIC GRAVITY 1.010 (1.010-1.030) URINE PH 6.5 (5.0-8.0) URINE PROTEIN NEGATIVE (NEGATIVE) URINE UROBILINOGEN 0.2 EU/dL (0.2-1.0) URINE NITRITE NEGATIVE (NEGATIVE) URINE BLOOD NEGATIVE (NEGATIVE) URINE LEUK ESTERASE NEGATIVE (NEGATIVE) URINE RBC NONE SEEN rbc/hpf (0-1) URINE WBC 0-1 wbc/hpf (0-1) URINE EPITHELIAL CELLS 1-3 EPI/hpf (0-5) URINE BACTERIA TRACE (<1+) (NONE SEEN) URINE COMMENT CULT NOT INDICATED URINE CULTURES ARE SET-UP BASED ON THE FOLLOWING CRITERIA:POSITIVE NITRITEPOSITIVE LEUKOCYTE ESTERASEGREATER THAN 10 WHITE BLOOD CELLSMODERATE (2+) OR GREATER BACTERIA UA-Culture if indicated: (STERLING: 11/15/2016 19:15) ( MsgRcvd 11/15/2016 19:44) Final results Test Result Flag Units (Reference) URINE COLOR YELLOW URINE APPEARANCE SL CLOUDY URINE GLUCOSE NEGATIVE (NEGATIVE) URINE BILIRUBIN NEGATIVE (NEGATIVE) URINE KETONE NEGATIVE (NEGATIVE) URINE SPECIFIC GRAVITY >= 1.030 (1.010-1.030) URINE PH 5.5 (5.0-8.0) URINE PROTEIN NEGATIVE (NEGATIVE) URINE UROBILINOGEN 0.2 EU/dL (0.2-1.0) URINE NITRITE NEGATIVE (NEGATIVE) URINE BLOOD NEGATIVE (NEGATIVE) URINE LEUK ESTERASE NEGATIVE (NEGATIVE) URINE RBC NONE SEEN rbc/hpf (0-1) URINE WBC 3-5 wbc/hpf (0-1) URINE EPITHELIAL CELLS >15 EPI/hpf (0-5) URINE BACTERIA FEW (1+) (NONE SEEN) URINE COMMENT CULT NOT INDICATED URINE CULTURES ARE SET-UP BASED ON THE FOLLOWING CRITERIA:POSITIVE NITRITEPOSITIVE LEUKOCYTE ESTERASEGREATER THAN 10 WHITE BLOOD CELLSMODERATE (2+) OR GREATER BACTERIA Urine: (STERLING: 11/15/2016 19:15) ( [facility] 11/15/2016 19:29) Final results Test Result Flag Units (Reference) URINE NEGATIVE CBC w Diff: (STERLING: 11/15/2016 20:00) ( [facility] 11/15/2016 20:10) Final results Test Result Flag Units (Reference) WHITE BLOOD COUNT 8.1 K/uL (4.5-11.5) RED BLOOD COUNT 4.49 M/uL (4.00-5.20) HEMOGLOBIN 13.6 gm/dL (12.0-16.0) HEMATOCRIT 39.9 % (36.0-46.0) MEAN CELL VOLUME 89 fL (80-100) MEAN CORPUSCULAR HGB 30 pg (26-34) MEAN CORPUSCULAR HGB CONC 34 g/dL (31-37) RED CELL DISTRIBUTION WIDTH 12.5 % (11.6-14.8) PLATELET COUNT 298 K/uL (150-400) NEUTROPHIL % 57.3 % (50-75) LYMPH % 33.3 % (25-40) MONO % 6.1 % (3-14) EOSINOPHIL % 2.6 % (0-4) BASOPHIL % 0.7 % (0-2) CMP: (STERLING: 11/15/2016 20:00) ( [facility] 11/15/2016 20:24) Final results Test Result Flag Units (Reference) GLUCOSE 87 mg/dL (70-110) BUN 13 mg/dL (7-18) CREATININE 0.8 mg/dL (0.6-1.3) Estimated GFR >60 mL/min Estimated GFR- >60 mL/min Note: Persistent reduction over 3 months in eGFR<60 mL/min/1.73 m2 defines CKD. Patients with eGFR values>=60 mL/min/1.73 m2 may also have CKD if evidence ofpersistent proteinuria. Additional information may be foundat www.[email or web address].org. SODIUM 141 mmol/L (136-145) POTASSIUM 3.6 mmol/L (3.5-5.1) CHLORIDE 107 mmol/L (98-107) CARBON DIOXIDE 25 mmol/L (21-32) CALCIUM 8.8 mg/dL (8.5-10.1) TOTAL PROTEIN 8.0 g/dL (6.4-8.2) ALBUMIN 4.0 g/dL (3.3-5.0) BILIRUBIN, TOTAL 0.4 mg/dL (0.0-1.0) ALKALINE PHOSPHATASE 58 U/L (46-116) AST (SGOT) 16 U/L (15-37) ALT (SGPT) 24 U/L (12-78) Wet Prep: (STERLING: 11/15/2016 19:53) ( MsgRcvd 11/15/2016 20:03) Final results SPECIMEN DESCRIPTION: C Test Result Flag Units (Reference) WET MOUNT CLUE CELLS:: NONE EPITHELIAL CELLS: MODERATE -- SOURCE?: CERVIX WHITE BLOOD CELLS: FEW TRICHOMONAS:: NONE -- YEAST:: NONE . Note - Tests: (US: neg for any acute process, torsion, ectopic.). PROGRESS AND PROCEDURES Course of Care: No signs of cervical motion tenderness. Second urinalysis unremarkable. Wet prep negative. During the time in the ED, the following DDX were considered: acute surgical abdomen, hemodynamic or metabolic instability, dehydration, gastroenteritis-viral, food borne, or bacterial, food intolerance, irritable or inflammatory bowel, infection, sepsis. 11/15/2016 20:06 BP: 105/65. HR: 64. RR: 20. O2 saturation: 95%. Patient is stable. Symptoms better. Patient/family counseled. Differential Diagnosis: I considered perforated peptic ulcer, acute cholecystitis, pancreatitis, acute appendicitis, diverticulitis, urinary tract infection, cystitis, ovarian cyst, pelvic inflammatory disease, hernia and abdominal aortic aneurysm as a possible cause of pelvic pain in this patient. This is a partial list of diagnoses considered. Disposition: Discharged. Condition: good. CLINICAL IMPRESSION Pelvic pain. INSTRUCTIONS (Labs and US here look good Breakthrough pain outside of TYlneol = VICODIN). Warnings: Further evaluation is necessary. Prescription Medications: Hydrocodone/APAP 5mg / 325mg: take 1 orally every 6 hours as needed for pain. Dispense twelve (12). No refill. Understanding of the discharge instructions verbalized by patient. Follow-up with: Joe Hood MD, Obstetrics/Gynecology, , [facility], [address] [place] [address] Follow up. Call for the next available appointment. (Electronically signed by Mattie Romero P.A.-C 11/15/2016 20:39)
--- NOTE | 2016-11-15 20:42 | ED DISCHARGE INSTRUCTIONS ---
Patient: LASHAWN TAVERA General Instructions [facility] VisitID: [id number] [address] Tom[place] [phone] 21y, F Registration Date/Time: 11/15/2016 Pelvic pain. INSTRUCTIONS (Labs and US here look good Breakthrough pain outside of TYlneol = VICODIN). Warnings: Further evaluation is necessary. Prescription Medications: Hydrocodone/APAP 5mg / 325mg: take 1 orally every 6 hours as needed for pain. Dispense twelve (12). No refill. Understanding of the discharge instructions verbalized by patient. Follow-up with: Joe Hood MD, Obstetrics/Gynecology, , [facility], [address] [place] [address] Follow up. Call for the next available appointment. ADDITIONAL INFORMATION Pelvic Pain, Uncertain Cause Based on your visit today, the exact cause of your pelvic pain is not certain. But your condition does not appear to be serious at this time. However, the signs of a serious problem may take more time to appear. Therefore, it is important for you to watch for any new symptoms or worsening of your condition. Home Care: Rest until you are feeling better. Avoid sexual intercourse until your pain goes away. You may use acetaminophen (Tylenol) or ibuprofen (Motrin, Advil) to control pain, unless another medicine was prescribed. [NOTE: If you have chronic liver or kidney disease or ever had a stomach ulcer or GI bleeding, talk with your doctor before using these medicines.] Follow Up with your doctor as advised. If a culture test was taken, call in two days for the results. If the culture is positive, you will be given more advice at that time. Otherwise, follow-up with your doctor or this facility as instructed. Get Prompt Medical Attention if any of the following occur: Fever of 100.4F (38C) or higher, or as directed by your healthcare provider Vaginal discharge Worsening pain Weakness, dizziness or fainting Unexpected vaginal bleeding or passage of stokes or white tissue from the vagina Pain that moves to the right lower abdomen Hydrocodone Bitartrate, Acetaminophen Oral tablet What is this medicine? ACETAMINOPHEN; HYDROCODONE (a set a AYANA shubham fen; tiffanie droe KOE done) is a pain reliever. It is used to treat mild to moderate pain. How should I use this medicine? Take this medicine by mouth. Swallow it with a full glass of water. Follow the directions on the prescription label. If the medicine upsets your stomach, take the medicine with food or milk. Do not take more than you are told to take. Talk to your tree pruner regarding the use of this medicine in children. This medicine is not approved for use in children. What side effects may I notice from receiving this medicine? Side effects that you should report to your doctor or health memory care program director as soon as possible: allergic reactions like skin rash, itching or hives, swelling of the face, lips, or tongue breathing problems confusion feeling faint or lightheaded, falls stomach pain yellowing of the eyes or skin Side effects that usually do not require medical attention (report to your doctor or health memory care program director if they continue or are bothersome): nausea, vomiting stomach upset What may interact with this medicine? alcohol antihistamines isoniazid medicines for depression, anxiety, or psychotic disturbances medicines for sleep muscle relaxants naltrexone narcotic medicines (opiates) for pain phenobarbital ritonavir tramadol What if I miss a dose? If you miss a dose, take it as soon as you can. If it is almost time for your next dose, take only that dose. Do not take double or extra doses. Where should I keep my medicine? Keep out of the reach of children. This medicine can be abused. Keep your medicine in a safe place to protect it from theft. Do not share this medicine with anyone. Selling or giving away this medicine is dangerous and against the law. Store at room temperature between 15 and 30 degrees C (59 and 86 degrees F). Protect from light. Keep container tightly closed. Throw away any unused medicine after the expiration date. Discard unused medicine and used packaging carefully. Pets and children can be harmed if they find used or lost packages. What should I tell my health care provider before I take this medicine? They need to know if you have any of these conditions: brain tumor Crohn's disease, inflammatory bowel disease, or ulcerative colitis drink more than 3 alcohol-containing drinks per day drug abuse or addiction head injury heart or circulation problems kidney disease or problems going to the bathroom liver disease lung disease, asthma, or breathing problems an unusual or allergic reaction to acetaminophen, hydrocodone, other opioid analgesics, other medicines, foods, dyes, or preservatives or trying to get breast-feeding What should I watch for while using this medicine? Tell your doctor or health memory care program director if your pain does not go away, if it gets worse, or if you have new or a different type of pain. You may develop tolerance to the medicine. Tolerance means that you will need a higher dose of the medicine for pain relief. Tolerance is normal and is expected if you take the medicine for a long time. Do not suddenly stop taking your medicine because you may develop a severe reaction. Your body becomes used to the medicine. This does NOT mean you are addicted. Addiction is a behavior related to getting and using a drug for a non-medical reason. If you have pain, you have a medical reason to take pain medicine. Your doctor will tell you how much medicine to take. If your doctor wants you to stop the medicine, the dose will be slowly lowered over time to avoid any side effects. You may get drowsy or dizzy when you first start taking the medicine or change doses. Do not drive, use machinery, or do anything that may be dangerous until you know how the medicine affects you. Stand or sit up slowly. There are different types of narcotic medicines (opiates) for pain. If you take more than one type at the same time, you may have more side effects. Give your health care provider a list of all medicines you use. Your doctor will tell you how much medicine to take. Do not take more medicine than directed. Call emergency for help if you have problems breathing. The medicine will cause constipation. Try to have a bowel movement at least every 2 to 3 days. If you do not have a bowel movement for 3 days, call your doctor or health memory care program director. Too much acetaminophen can be very dangerous. Do not take Tylenol (acetaminophen) or medicines that contain acetaminophen with this medicine. Many non-prescription medicines contain acetaminophen. Always read the labels carefully. You have been given the following additional information: Pelvic Pain, Unknown Cause Hydrocodone Bitartrate, Acetaminophen Oral tablet (Electronically signed by Mattie Romero P.A.-C 11/15/2016 20:39)
--- NOTE | 2016-11-15 20:42 | ED MED RECONCILIATION SUMMARY ---
Patient: LASHAWN TAVERA Medication Reconciliation Report [facility] VisitID: [id number] [address] [place] [address] 21y, F Registration Date/Time: 11/15/2016 Weight: 52.1 kg Height/Length: 66 in. BMI: 18.5 ALLERGIES: Naproxen The patient's Home Medications are listed below: THE FOLLOWING MEDICATIONS NEED TO BE RECONCILED: Seasonal IC Oral The source(s) of the original Home Medication information: Not obtained. The following Medications were given to the patient in the Emergency Department: Hydrocodone-APAP [PO] PO 2 tab, administered: 11/15/2016 7:31:00 PM The following Medications were prescribed to the patient: Hydrocodone/APAP 5mg / 325mg: take 1 orally every 6 hours as needed for pain. Dispense twelve (12). No refill. -- Mattie Romero, PLisbethAChristinaC
--- NOTE | 2016-11-15 20:42 | ED MED RECONCILIATION SUMMARY ---
Patient: LASHAWN TAVERA Medication Reconciliation Report [facility] VisitID: [id number] [address] [place] [address] 21y, F Registration Date/Time: 11/15/2016 Weight: 52.1 kg Height/Length: 66 in. BMI: 18.5 ALLERGIES: Naproxen The patient's Home Medications are listed below: THE FOLLOWING MEDICATIONS NEED TO BE RECONCILED: Seasonal IC Oral The source(s) of the original Home Medication information: Not obtained. The following Medications were given to the patient in the Emergency Department: Hydrocodone-APAP [PO] PO 2 tab, administered: 11/15/2016 7:31:00 PM The following Medications were prescribed to the patient: Hydrocodone/APAP 5mg / 325mg: take 1 orally every 6 hours as needed for pain. Dispense twelve (12). No refill. -- Mattie Romero, PLisbethAChristinaC
--- NOTE | 2016-11-15 20:42 | ED DISCHARGE INSTRUCTIONS ---
Patient: LASHAWN TAVERA General Instructions [facility] VisitID: [id number] [place] [phone] 21y, F Registration Date/Time: 11/15/2016 Pelvic pain. INSTRUCTIONS (Labs and US here look good Breakthrough pain outside of TYlneol = VICODIN). Warnings: Further evaluation is necessary. Prescription Medications: Hydrocodone/APAP 5mg / 325mg: take 1 orally every 6 hours as needed for pain. Dispense twelve (12). No refill. Understanding of the discharge instructions verbalized by patient. Follow-up with: Joe Hood MD, Obstetrics/Gynecology, , [facility], [address] [place] [address] Follow up. Call for the next available appointment. ADDITIONAL INFORMATION Pelvic Pain, Uncertain Cause Based on your visit today, the exact cause of your pelvic pain is not certain. But your condition does not appear to be serious at this time. However, the signs of a serious problem may take more time to appear. Therefore, it is important for you to watch for any new symptoms or worsening of your condition. Home Care: Rest until you are feeling better. Avoid sexual intercourse until your pain goes away. You may use acetaminophen (Tylenol) or ibuprofen (Motrin, Advil) to control pain, unless another medicine was prescribed. [NOTE: If you have chronic liver or kidney disease or ever had a stomach ulcer or GI bleeding, talk with your doctor before using these medicines.] Follow Up with your doctor as advised. If a culture test was taken, call in two days for the results. If the culture is positive, you will be given more advice at that time. Otherwise, follow-up with your doctor or this facility as instructed. Get Prompt Medical Attention if any of the following occur: Fever of 100.4F (38C) or higher, or as directed by your healthcare provider Vaginal discharge Worsening pain Weakness, dizziness or fainting Unexpected vaginal bleeding or passage of stokes or white tissue from the vagina Pain that moves to the right lower abdomen Hydrocodone Bitartrate, Acetaminophen Oral tablet What is this medicine? ACETAMINOPHEN; HYDROCODONE (a set a AYANA shubham fen; tiffanie droe KOE done) is a pain reliever. It is used to treat mild to moderate pain. How should I use this medicine? Take this medicine by mouth. Swallow it with a full glass of water. Follow the directions on the prescription label. If the medicine upsets your stomach, take the medicine with food or milk. Do not take more than you are told to take. Talk to your export freight manager regarding the use of this medicine in children. This medicine is not approved for use in children. What side effects may I notice from receiving this medicine? Side effects that you should report to your doctor or health adult care manager as soon as possible: allergic reactions like skin rash, itching or hives, swelling of the face, lips, or tongue breathing problems confusion feeling faint or lightheaded, falls stomach pain yellowing of the eyes or skin Side effects that usually do not require medical attention (report to your doctor or health adult care manager if they continue or are bothersome): nausea, vomiting stomach upset What may interact with this medicine? alcohol antihistamines isoniazid medicines for depression, anxiety, or psychotic disturbances medicines for sleep muscle relaxants naltrexone narcotic medicines (opiates) for pain phenobarbital ritonavir tramadol What if I miss a dose? If you miss a dose, take it as soon as you can. If it is almost time for your next dose, take only that dose. Do not take double or extra doses. Where should I keep my medicine? Keep out of the reach of children. This medicine can be abused. Keep your medicine in a safe place to protect it from theft. Do not share this medicine with anyone. Selling or giving away this medicine is dangerous and against the law. Store at room temperature between 15 and 30 degrees C (59 and 86 degrees F). Protect from light. Keep container tightly closed. Throw away any unused medicine after the expiration date. Discard unused medicine and used packaging carefully. Pets and children can be harmed if they find used or lost packages. What should I tell my health care provider before I take this medicine? They need to know if you have any of these conditions: brain tumor Crohn's disease, inflammatory bowel disease, or ulcerative colitis drink more than 3 alcohol-containing drinks per day drug abuse or addiction head injury heart or circulation problems kidney disease or problems going to the bathroom liver disease lung disease, asthma, or breathing problems an unusual or allergic reaction to acetaminophen, hydrocodone, other opioid analgesics, other medicines, foods, dyes, or preservatives or trying to get breast-feeding What should I watch for while using this medicine? Tell your doctor or health adult care manager if your pain does not go away, if it gets worse, or if you have new or a different type of pain. You may develop tolerance to the medicine. Tolerance means that you will need a higher dose of the medicine for pain relief. Tolerance is normal and is expected if you take the medicine for a long time. Do not suddenly stop taking your medicine because you may develop a severe reaction. Your body becomes used to the medicine. This does NOT mean you are addicted. Addiction is a behavior related to getting and using a drug for a non-medical reason. If you have pain, you have a medical reason to take pain medicine. Your doctor will tell you how much medicine to take. If your doctor wants you to stop the medicine, the dose will be slowly lowered over time to avoid any side effects. You may get drowsy or dizzy when you first start taking the medicine or change doses. Do not drive, use machinery, or do anything that may be dangerous until you know how the medicine affects you. Stand or sit up slowly. There are different types of narcotic medicines (opiates) for pain. If you take more than one type at the same time, you may have more side effects. Give your health care provider a list of all medicines you use. Your doctor will tell you how much medicine to take. Do not take more medicine than directed. Call emergency for help if you have problems breathing. The medicine will cause constipation. Try to have a bowel movement at least every 2 to 3 days. If you do not have a bowel movement for 3 days, call your doctor or health adult care manager. Too much acetaminophen can be very dangerous. Do not take Tylenol (acetaminophen) or medicines that contain acetaminophen with this medicine. Many non-prescription medicines contain acetaminophen. Always read the labels carefully. You have been given the following additional information: Pelvic Pain, Unknown Cause Hydrocodone Bitartrate, Acetaminophen Oral tablet (Electronically signed by Mattie Romero P.A.-C 11/15/2016 20:39)
--- NOTE | 2016-11-15 20:42 | ED MAR SUMMARY ---
..... Medication Administration Record [address] [place] [address] Patient: LASHAWN TAVERA Visit ID: [id number] 21y, F Weight: 52.1 kg Height/Length: 66 in BMI: 18.5 ALLERGIES: Naproxen Given 19:31 11/15/2016 Daniele Floyd R.N. Medication Administered: HYDROCODONE-APAP [PO] (HYDROCODONE-ACETAMINOPHEN), Dose: 2 tab 5/325 mg Tablets PO. Medication Ordered: Hydrocodone-APAP PO 10/650 mg (NOW, HIGH ALERT MEDICATION).
--- NOTE | 2016-11-15 20:42 | ED MAR SUMMARY ---
..... Medication Administration Record [address] [place] [address] Patient: LASHAWN TAVERA Visit ID: [id number] 21y, F Weight: 52.1 kg Height/Length: 66 in BMI: 18.5 ALLERGIES: Naproxen Given 19:31 11/15/2016 Daniele Floyd R.N. Medication Administered: HYDROCODONE-APAP [PO] (HYDROCODONE-ACETAMINOPHEN), Dose: 2 tab 5/325 mg Tablets PO. Medication Ordered: Hydrocodone-APAP PO 10/650 mg (NOW, HIGH ALERT MEDICATION).
--- NOTE | 2016-11-15 20:44 | DIAGNOSTIC IMAGING REPORT ---
PROCEDURE: US COMPLETE PELVIC W/TRANSVAG INDICATION: Left pelvic pain. TECHNIQUE: Transabdominal and endovaginal stokes scale and color Doppler sonographic images of the female pelvis were obtained. COMPARISON: CT abdomen 09/12/2016 and pelvic ultrasound 08/20/2016. FINDINGS: TRANSABDOMINAL SCANS: Anteflexed uterus. Normal kidneys. TRANSVAGINAL SCANS: The uterus measures 8.5 x 3.2 x 5.8 cm. Myometrium is unremarkable. Normal endometrial measures 3.6 mm. Right ovary measures 3.2 x 0.9 x 1.6 cm. Left ovary measures 3.1 x 1.9 x 2.2 cm. Small peripheral follicles bilaterally. There is vascular flow to both ovaries. Previously noted left ovarian hemorrhagic cyst has resolved. No free fluid in the cul-de-sac. IMPRESSION: 1. Normal pelvic ultrasound. No evidence of ovarian torsion.
== END 2016-11-15 20:41 | disposition home or self-care (01) ==
LOC: ED SRH 18:54
DX: R10.2 Pelvic and perineal pain (principal); Z87.42 Personal history of other diseases of the female genital tract; Z88.8 Allergy status to other drugs, medicaments and biological substances
CPT/HCPCS: 90004; 90074; 90100; 90195; 91227; 91228; 93070; 95059